=== PATIENT | male | born 1970 | race Caucasian/White ===

== ENCOUNTER 2025-04-01 13:28 | Emergency (ER) | payer OTHER, SELFPAY ==
--- NOTE | 2025-04-01 13:32 | ED_ITS ---
HPI - General Adult General Stated complaint: SOB/Swollen Legs Source: patient and RN notes reviewed Mode of arrival: ambulatory Limitations: no limitations History of Present Illness HPI narrative: Patient is a 54-year-old male who presents to the [facility] with complaints of dyspnea on exertion and bilateral lower leg swelling. Patient states that his symptoms have been present the past 3 days. He states that the shortness of breath has worsened in severity. He does report some mild chest tightness that is nonradiating. He denies any cardiac history. Denies history of congestive heart failure. States that he does not have any significant medical history, and only takes Viagra. Related Data Home Medications ?Medication ?Instructions ?Recorded ?Confirmed ?Last Taken ?Type No Home Medications 04/01/25 04/01/25 Unknown History Allergies Allergy/AdvReac Type Severity Reaction Status Date / Time No Known Allergies Allergy Mild Verified 04/01/25 13:47 Review of Systems Review of Systems: CONSTITUTIONAL: Denies fever, chills, or sweats. EYES: Denies visual changes, redness, or discharge. ENT: Denies otalgia and sore throat CARDIOVASCULAR: Reports chest tightness. RESPIRATORY: Denies cough but reports dyspnea. GASTROINTESTINAL: Denies abdominal pain, nausea, vomiting, or diarrhea. GENITOURINARY: Denies dysuria or hematuria. SKIN: Denies rash or itching. MUSCULOSKELETAL: Denies back pain, joint pain, or myalgia. NEUROLOGIC: Denies headache, numbness, or weakness. Pertinent positives per HPI. PMFSH Comments At the time of my signature, I reviewed and agree with the nursing past medical, surgical, social, and family history. There is no relevant family history pertinent to the patient complaint. Exam Narrative: GENERAL: This is a well-nourished, well-developed patient, in no apparent distress. HEAD: normocephalic, atraumatic. EYES: Sclera clear/white. Vision is grossly intact. EARS: External ears normal. Hearing grossly intact. NOSE: External nose normal with no obvious nasal discharge, nares without redness, no rhinorrhea. THROAT: Mucous membranes moist, posterior pharynx clear. NECK: Neck supple, non-tender without lymphadenopathy, masses or thyromegaly. CARDIOVASCULAR: Regular rate and rhythm. Bilateral lower leg edema present. RESPIRATORY: Clear to auscultation. Breath sounds equal bilaterally. No wheezes, rales, or rhonchi. GASTROINTESTINAL: Abdomen soft, non-tender, nondistended. Bowel sounds are active. No hepato-splenomegaly, or palpable masses. No guarding. SKIN: warm, intact with no suspicious lesions or rash, good texture and turgor. NEURO: awake, alert, and oriented to person, place and time. There were no obvious focal neurologic abnormalities. Course Course Level of Care: Express Care Visit Vital Signs Vital signs: Vital Signs Temperature 97.0 F L 04/01/25 13:35 Pulse Rate 105 H 04/01/25 13:35 Respiratory Rate 20 04/01/25 13:35 Blood Pressure 122/34 L 04/01/25 13:35 Pulse Oximetry 98 04/01/25 13:35 Oxygen Delivery Room Air 04/01/25 13:35 Temperature 97.0 F L 04/01/25 13:35 Pulse Rate 105 H 04/01/25 13:35 Respiratory Rate 04/01/25 13:35 Blood Pressure 122/34 L 04/01/25 13:35 Pulse Oximetry 98 04/01/25 13:35 Oxygen Delivery Room Air 04/01/25 13:35 Reviewed Transfer Transfered to: [facility] Transportation: Other (private vehicle (AMA against ambulance as advised by STAFFING ASSOCIATE)) Transfer rationale: shortness of breath, chest tightness, bilateral lower extremity edema; appropriate evaluation, testing, and treatment Accepting physician: Dr. Yi Medical Decision Making MDM Narrative Medical decision making narrative: Patient presents to the [facility] with dyspnea on exertion, chest tightness, bilateral lower extremity edema. Patient was directed to [facility] for further evaluation, testing, and treatment. Accepting physician is Dr. Yi. Patient transferred via private vehicle with dad as regional tanker truck driver (AMA against EMS transport). Differential Diagnosis Differential Diagnosis: congestive heart failure, dependent edema, ACS Vital Signs Vital Signs: Vital Signs Temperature 97.0 F L 04/01/25 13:35 Pulse Rate 105 H 04/01/25 13:35 Respiratory Rate 04/01/25 13:35 Blood Pressure 122/34 L 04/01/25 13:35 Pulse Oximetry 98 04/01/25 13:35 Oxygen Delivery Room Air 04/01/25 13:35 Temperature 97.0 F L 04/01/25 13:35 Pulse Rate 105 H 04/01/25 13:35 Respiratory Rate 20 04/01/25 13:35 Blood Pressure 122/34 L 04/01/25 13:35 Pulse Oximetry 98 04/01/25 13:35 Oxygen Delivery Room Air 04/01/25 13:35 ECG Data EKG #1: Attestation: I personally reviewed and interpreted this ECG as follows: ECG completion date: 04/01/25 ECG completion time: 13:51 Interpretation: normal axis, normal intervals, sinus tachycardia with a rate of 105 bpm EKG Interpretation: tachycardia Critical Care Time Critical Care Time Critical Care Time: No Discharge Plan Discharge Clinical Impression: Dyspnea on exertion, Bilateral edema of lower extremity Patient Disposition: Acute Care Hospital Condition: Stable Additional Instructions: Go directly to [facility] emergency department. Patient Language: French Prescriptions: No Action No Home Medications Follow-up/Referrals: UNKNOWN,DOCTOR [Non-Staff] - Time of Disposition: 13:45
[2025-04-01 13:35] VITALS: BP 122/34; PULSE 105; RESP 20; TEMP 36.1; O2SAT 98
--- NOTE | 2025-04-01 13:40 | ECG_ITS ---
Test Date: 2025-04-01 13:51:12 Measurements Intervals [place] Rate: 105 P: 69 SC: 144 QRS: 73 QRSD: 93 T: 60 QT: 326 QTc: 431 Interpretive Statements SINUS TACHYCARDIA BORDERLINE R WAVE PROGRESSION, ANTERIOR LEADS BORDERLINE ST-T WAVE ABNORMALITY- INF/HIGH LAT LEADS BORDERLINE ECG No previous ECG available for comparison Electronically Signed On 04-01-2025 14:12:03 CDT by Davonte Cheatham D.O.
== END 2025-04-01 13:55 | disposition short-term general hospital (02) ==
PROVIDERS: Emergency Provider Nurse Practitioner
DX: R06.09 Other forms of dyspnea (principal); R60.0 Localized edema
CPT/HCPCS: 93005; 99213; G0463

== ENCOUNTER 2025-04-01 14:28 | Observation (INO) | payer OTHER, SELFPAY ==
--- NOTE | ~2025-04-01 | XR_ITS ---
CHEST RADIOGRAPH, PA AND LATERAL CLINICAL HISTORY: orthopnea, dyspnea . COMPARISON: None available TECHNIQUE: PA and lateral views of the chest. FINDINGS The cardiomediastinal silhouette is enlarged. Dense opacification of the right heart border for which a right middle lobe infiltrate is suspected. The remainder of the lungs are clear. IMPRESSION: Right middle lobe infiltrate. Reviewed, dictated and finalized at location A.
--- NOTE | ~2025-04-01 | US_ITS ---
EXAMINATION: US right upper quadrant DATE: 04/02/2025 09:37 INDICATION: Transaminitis TECHNIQUE: Multiple grayscale and Doppler ultrasound images of the abdomen were obtained. COMPARISON: None FINDINGS: Visualized portion of the pancreatic body appears normal. Portions of the head and tail are obscured by shadowing bowel gas. Liver has normal echogenicity and contour, with a smooth surface. 1.6 cm hype rechoic nodule in the right hepatic lobe most likely representing a hemangioma. There is also a 1.3 c m anechoic cyst in the left hepatic lobe.. No intrahepatic biliary duct dilation suspected. Portal ve nous flow was seen in the hepatopetal, normal direction and has normal Doppler waveform. The gallblad mino is normal in appearance. There is no cholelithiasis. The common bile duct measures 4 mm, which i s normal. Sonographic Deal sign was reported as negative by the superintendent recreation. Visualized portion of the proximal inferior vena cava is normal. IMPRESSION: 1. Indeterminate 1.6 cm hyperechoic nodules in the right hepatic lobe which in the absence of known l iver disease or prior primary malignancy would be most likely to represent a hemangioma. Could consid er multiphase pre and postcontrast MRI or CT for more definitive determination as clinically indicate d. Reviewed, dictated and finalized at location A. IMPRESSION: 1. Indeterminate 1.6 cm hyperechoic nodules in the right hepatic lobe which in the absence of known liver disease or prior primary malignancy would be most li migue to represent a hemangioma. Could consider multiphase pre and postcontrast MRI or CT for more definitive determination as clinically indicated.
[2025-04-01 15:15] VITALS: BP 125/92; PULSE 108; RESP 22; TEMP 36.5; O2SAT 98
--- NOTE | 2025-04-01 17:15 | ECG_ITS ---
Test Date: 2025-04-01 19:26:54 Measurements Intervals [place] Rate: 103 P: 64 [place]: 141 QRS: 48 QRSD: 97 T: 34 QT: 347 QTc: 454 Interpretive Statements SINUS TACHYCARDIA BORDERLINE ST-T WAVE ABNORMALITY- DIFFUSE LEADS BASELINE WANDER- V4, V6 BORDERLINE ECG Compared to ECG 04/01/2025 13:51:12 NO SIGNIFICANT CHANGE Electronically Signed On 04-01-2025 20:18:20 CDT by Davonte Cheatham D.O.
--- NOTE | 2025-04-01 17:17 | ED_ITS ---
HPI - SOB/Dyspnea General Chief Complaint: Shortness of Breath/Dyspnea <Tatiana Castillo PA-C - Last Filed: 04/02/25 09:17> Stated Complaint: sob <Tatiana Castillo PA-C - Last Filed: 04/02/25 09:17> Time Seen by Provider: 04/01/25 19:14 <Tatiana Castillo PA-C - Last Filed: 04/02/25 09:17> Focused HPI: 54-year-old male with no past medical history presents to the emergency department with concerns for CHF. Patient states for the past 3 days he has had exertional dyspnea, orthopnea, generalized fatigue and new onset bilateral lower extremity edema. He went to urgent care was advised to come to the ED for further evaluation. He denies chest pain. No prior cardiac history or procedures. Is also endorsing a productive cough. Denies fevers. GENERAL: Well-appearing, well-nourished, and in no acute distress. HEAD: Normocephalic, atraumatic. CHEST: Clear to auscultation. ?No respiratory distress. EXT: 3+ bilateral lower extremity edema no overlying warmth or erythema HEART: Regular rate and rhythm.? NEURO: ?Alert and oriented x3. Patient screened in triage and initial orders placed.? ?Additional care and disposition to be based upon?diagnostic testing and treatment. <Tatiana Castillo PA-C - Last Filed: 04/02/25 09:17> History of Present Illness HPI Narrative: 54-year-old male presents emergency department for evaluation for worsening shortness of breath. Patient states he began developing shortness of breath over the last 3 days and leg edema today. Patient does have a 40 pack year smoking history but denies any prior diagnosis of COPD, CHF and has no prior history of coronary disease. Patient states he does not follow-up with physicians. Patient denies any associated chest pain but does have exertional shortness of breath. Patient reports he has had increased cough and sputum production over the last few days as well. Patient reports he has been sleeping upright due to the shortness of breath. Patient is also complaining of some increased abdominal fullness. <Cesar Rios MD - Last Filed: 04/01/25 23:01> Related Data Home Medications: Home Medications ?Medication ?Instructions ?Recorded ?Confirmed ?Last Taken ?Type nicotine (polacrilex) 4 mg gum mg 04/01/25 Unknown History nicotine 14 mg/24 hr daily 04/01/25 Unknown History transdermal patch <Tatiana Castillo PA-C - Last Filed: 04/02/25 09:17> Allergies/Adverse Reactions: Allergies Allergy/AdvReac Type Severity Reaction Status Date / Time No Known Allergies Allergy Mild Verified 04/01/25 13:47 <Tatiana Castillo PA-C - Last Filed: 04/02/25 09:17> Review of Systems 2 Review of Systems: All systems reviewed & are unremarkable except as noted in HPI and below <Cesar Rios MD - Last Filed: 04/01/25 23:01> [facility] Past Medical History Medical History: Medical History (Updated 04/02/25 @ 04:06 by Cris Robbins DO) Anxiety and depression Nicotine dependence with current use <Tatiana Castillo PA-C - Last Filed: 04/02/25 09:17> Surgical History Surgical History: Surgical History (Updated 04/02/25 @ 04:02 by Cris Robbins DO) History of appendectomy <Tatiana Castillo PA-C - Last Filed: 04/02/25 09:17> Social History Social History: Social History (Updated 04/02/25 @ 08:12 by Cris Robbins DO) Social History: He has been since 2019. He lives with his father and uncle. 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 He does not have any children. 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 He still smokes 1 pack of cigarettes per day and started when he was a teenager. He occasionally uses marijuana. Code status: Full code Surrogate decision maker: Tee Cobb (father) Smoking packs per day: 1 Smoking cigarettes per day: 20.0 Years smoked: 40 Smoking pack-years: 40.00 Smoking status: Current every day smoker Tobacco type: cigarettes Alcohol intake: former Alcohol use details: Patient reports he used to drink date alcoholic beverages a day but quit drinking alcohol in 1999. Do You Feel Safe in your Home?: Yes Lack of Transportation: No Lack of Food: Never True Current Housing: I Have Housing Concerned About Future Housing: No Difficulty Paying Gas/Electric Bills: No Difficulty Paying for Meds: No Currently Unemployed: No Education: Don't Know Difficulty w/ Childcare or Family Care: No Spiritual care concerns: No <Tatiana Castillo PA-C - Last Filed: 04/02/25 09:17> Exam 2 Narrative: APPEARANCE: Ill-appearing HEAD: normocephalic, atraumatic. EYES: PERRLA/EOMI, conjunctivae clear. NOSE: Normal no drainage NECK: Supple. No adenopathy, no masses. RESPIRATORY: Increased work breathing, lungs clear to auscultation CARDIOVASCULAR: Regular rate and rhythm without murmurs rubs or gallops. ABDOMINAL: Soft, nontender, nondistended, normal bowel sounds MUSCULOSKELETAL: +1 to 2 Lower extremity edema NEURO: Alert. Cranial nerves II through XII intact. Good gait. Good coordination SKIN: Warm, dry. Normal Color <Cesar Rios MD - Last Filed: 04/01/25 23:01> Course Vital Signs Vital signs: Vital Signs Temperature 97.7 F 04/01/25 15:15 Pulse Rate 108 H 04/01/25 15:15 Respiratory Rate 22 H 04/01/25 15:15 Blood Pressure 125/92 H 04/01/25 15:15 Pulse Oximetry 98 04/01/25 15:15 Oxygen Delivery Room Air 04/01/25 15:15 Temperature 97.1 F L 04/02/25 05:37 Pulse Rate 106 H 04/02/25 08:00 Respiratory Rate 19 04/02/25 05:37 Blood Pressure 124/90 04/02/25 05:37 Pulse Oximetry 94 04/02/25 05:37 Oxygen Delivery Room Air 04/02/25 08:00 <Tatiana Castillo PA-C - Last Filed: 04/02/25 09:17> Vital Signs Temperature 97.7 F 04/01/25 15:15 Pulse Rate 108 H 04/01/25 15:15 Respiratory Rate 22 H 04/01/25 15:15 Blood Pressure 125/92 H 04/01/25 15:15 Pulse Oximetry 98 04/01/25 15:15 Oxygen Delivery Room Air 04/01/25 15:15 Temperature 97.1 F L 04/02/25 05:37 Pulse Rate 106 H 04/02/25 08:00 Respiratory Rate 19 04/02/25 05:37 Blood Pressure 124/90 04/02/25 05:37 Pulse Oximetry 94 04/02/25 05:37 Oxygen Delivery Room Air 04/02/25 08:00 <Cesar Rios MD - Last Filed: 04/01/25 23:01> MDM - SOB/Dyspnea MDM Narrative Medical decision making narrative: 54-year-old male 40 pack year smoking history presents emergency department for evaluation for lower extremity edema and increased shortness of breath. Patient is currently afebrile but does have a leukocytosis of 10.5 and hemoglobin 14.2. INR is 1.3. No significant acute abnormalities on his CMP. Patient does have mild elevation of AST ALT but normal T bili and alk-phos. Patient does have an elevated proBNP of 8030 an elevated troponin 0.065. EKG shows sinus tachycardia with a rate of [address] changes and no evidence acute myocardial infarction. Patient does have exertional shortness of breath but denies any chest pain. X-ray does show evidence of a right middle lobe infiltrate, patient does have increased sputum production. Blood cultures were ordered and patient was started on antibiotics for possible community- acquired pneumonia, patient was treated with IV Solu-Medrol for possible COPD exacerbation. Patient was treated with a breathing treatment as well but patient did not have significant wheezing on exam at initial evaluation. Patient was treated with a dose of IV Lasix due to the concern for acute CHF diagnosis. <Cesar Rios MD - Last Filed: 04/01/25 23:01> Differential Diagnosis Differential diagnosis: Likely acute exacerbation of chronic obstructive airways disease, congestive heart failure, community acquired pneumonia and asthma with exacerbation <Cesar Rios MD - Last Filed: 04/01/25 23:01> Lab Data Attestation: I reviewed the patient's lab results. <Cesar Rios MD - Last Filed: 04/01/25 23:01> Result diagrams: 04/02/25 06:29 04/02/25 06:29 <Tatiana Castillo PA-C - Last Filed: 04/02/25 09:17> Labs: Lab Results 04/01/25 04/01/25 Range/Units 17:37 20:26 WBC 10.5 H (4.5-10.0) K/mm3 RBC 4.71 (4.6-6.20) M/mm3 Hgb 14.2 (14.0-18.0) g/dL Hct 43.8 (42.0-52.0) % MCV 93.0 (80-100) fl MCH 30.1 (26-34) pg MCHC 32.4 (32-36) g/dl RDW 14.0 (11.5-14.5) % Plt Count 221 (150-375) k/mm3 MPV 12.3 H (7.4-10.4) fl Immature Gran % (Auto) 0.5 (0-0.5) % Neut % (Auto) 64.6 (45.5-73.1) % Lymph % (Auto) 24.0 (18.3-44.2) % [place] % (Auto) 9.0 H (2.6-8.5) % Eos % (Auto) 1.1 (0-4.4) % Baso % (Auto) 0.8 (0.2-1.2) % Lymph # (Auto) 2.53 (0.9-3.2) K/mm3 [place] # (Auto) 1.0 H (0.1-0.6) K/mm3 Eos # (Auto) 0.1 (0-0.3) K/mm3 Baso # (Auto) 0.1 (0.0-0.1) K/mm3 Abs Immat Gran (auto) 0.05 H (0.00-0.031) K/mm3 Absolute Neuts (auto) 6.8 H (1.3-6.7) K/mm3 Absolute Nucleated RBC 0.000 (0.0-0.012) K/mm3 Nucleated RBC % 0.0 (0.0-0.2) % PT 15.7 H (11.1-14.7) Seconds INR 1.3 APTT 28.4 (22.3-36.8) Seconds Sodium 136 L (137-145) mmol/L Potassium 4.6 (3.4-5.0) mmol/L Chloride 105 (98-107) mmol/L Carbon Dioxide 22 (22-30) mmol/L Anion Gap 9 (4-12) mmol/L BUN 24 H (9-20) mg/dL Creatinine 1.24 (0.7-1.3) mg/dL Estim Creat Clear Calc 56 ml/min Estimated GFR 60 (59 - ) Glucose 129 H (65-110) mg/dL Calcium 9.1 (8.4-10.2) mg/dL Magnesium 2.1 (1.6-2.3) mg/dL Total Bilirubin 1.2 (0.2-1.3) mg/dL AST 63 H (17-59) U/L ALT 74 H (6-50) U/L Alkaline Phosphatase 56 (38-126) U/L Troponin I 0.065 H* 0.071 H* (0.000-0.034) ng/mL NT-Pro-B Natriuret Pep 8030 H (19.9-100) pg/mL Total Protein 6.4 (6.3-8.2) g/dL Albumin 3.6 (3.5-5.1) g/dL <Tatiana Castillo PA-C - Last Filed: 04/02/25 09:17> Lab Results 04/01/25 04/01/25 Range/Units 17:37 20:26 WBC 10.5 H (4.5-10.0) K/mm3 RBC 4.71 (4.6-6.20) M/mm3 Hgb 14.2 (14.0-18.0) g/dL Hct 43.8 (42.0-52.0) % MCV 93.0 (80-100) fl MCH 30.1 (26-34) pg MCHC 32.4 (32-36) g/dl RDW 14.0 (11.5-14.5) % Plt Count 221 (150-375) k/mm3 MPV 12.3 H (7.4-10.4) fl Immature Gran % (Auto) 0.5 (0-0.5) % Neut % (Auto) 64.6 (45.5-73.1) % Lymph % (Auto) 24.0 (18.3-44.2) % [place] % (Auto) 9.0 H (2.6-8.5) % Eos % (Auto) 1.1 (0-4.4) % Baso % (Auto) 0.8 (0.2-1.2) % Lymph # (Auto) 2.53 (0.9-3.2) K/mm3 [place] # (Auto) 1.0 H (0.1-0.6) K/mm3 Eos # (Auto) 0.1 (0-0.3) K/mm3 Baso # (Auto) 0.1 (0.0-0.1) K/mm3 Abs Immat Gran (auto) 0.05 H (0.00-0.031) K/mm3 Absolute Neuts (auto) 6.8 H (1.3-6.7) K/mm3 Absolute Nucleated RBC 0.000 (0.0-0.012) K/mm3 Nucleated RBC % 0.0 (0.0-0.2) % PT 15.7 H (11.1-14.7) Seconds INR 1.3 APTT 28.4 (22.3-36.8) Seconds Sodium 136 L (137-145) mmol/L Potassium 4.6 (3.4-5.0) mmol/L Chloride 105 (98-107) mmol/L Carbon Dioxide 22 (22-30) mmol/L Anion Gap 9 (4-12) mmol/L BUN 24 H (9-20) mg/dL Creatinine 1.24 (0.7-1.3) mg/dL Estim Creat Clear Calc 56 ml/min Estimated GFR 60 (59 - ) Glucose 129 H (65-110) mg/dL Calcium 9.1 (8.4-10.2) mg/dL Magnesium 2.1 (1.6-2.3) mg/dL Total Bilirubin 1.2 (0.2-1.3) mg/dL AST 63 H (17-59) U/L ALT 74 H (6-50) U/L Alkaline Phosphatase 56 (38-126) U/L Troponin I 0.065 H* 0.071 H* (0.000-0.034) ng/mL NT-Pro-B Natriuret Pep 8030 H (19.9-100) pg/mL Total Protein 6.4 (6.3-8.2) g/dL Albumin 3.6 (3.5-5.1) g/dL <Cesar Rios MD - Last Filed: 04/01/25 23:01> ECG Data EKG #1: EKG Interpretation: sinus rhythm, no ectopy, non-specific ST changes, normal QRS, normal QT and NL axis <Cesar Rios MD - Last Filed: 04/01/25 23:01> Discharge Plan Discharge Clinical Impression: Dyspnea on exertion, Bilateral edema of lower extremity, Congestive heart failure, Elevated troponin Community acquired pneumonia Qualifiers: Laterality: right Lung location: middle lobe of lung Qualified Code(s): J18.9 - Pneumonia, unspecified organism <Tatiana Castillo PA-C - Last Filed: 04/02/25 09:17> Patient Disposition: Still a Patient <Tatiana Castillo PA-C - Last Filed: 04/02/25 09:17> Condition: Serious <Tatiana Castillo PA-C - Last Filed: 04/02/25 09:17>
[2025-04-01 17:49] VITALS: BP 126/95; PULSE 100; RESP 20; TEMP 36.3; O2SAT 98
[2025-04-01 18:04] LABS: Basophils Absolute Auto 0.1 K/mm3 (0.0-0.1); Basophils Percent Auto 0.8 % (0.2-1.2); Eosinophils Absolute Auto 0.1 K/mm3 (0-0.3); Eosinophils Percent Auto 1.1 % (0-4.4); Hematocrit 43.8 % (42.0-52.0); Hemoglobin 14.2 g/dL (14.0-18.0); Immature Granulocyte Absolute 0.05 K/mm3 (0.00-0.031); Immature Granulocyte Percent A 0.5 % (0-0.5); Lymphocytes Absolute Auto 2.53 K/mm3 (0.9-3.2); Mean Corpuscular HGB Conc 32.4 g/dl (32-36); Mean Corpuscular Hemoglobin 30.1 pg (26-34); Mean Platelet Volume 12.3 fl (7.4-10.4); Neutrophils Absolute Auto 6.8 K/mm3 (1.3-6.7); Neutrophils Percent Auto 64.6 % (45.5-73.1); Platelet Count Result 221 k/mm3 (150-375); Red Blood Count 4.71 M/mm3 (4.6-6.20); White Blood Count 10.5 K/mm3 (4.5-10.0)
[2025-04-01 18:16] LABS: INR 1.3; Partial Thromboplastin Time 28.4 Seconds (22.3-36.8); Prothrombin Time 15.7 Seconds (11.1-14.7)
[2025-04-01 18:18] LABS: Alanine Aminotransferase 74 U/L (6-50); Albumin Level 3.6 g/dL (3.5-5.1); Alkaline Phosphatase 56 U/L (38-126); Anion Gap 9 mmol/L (4-12); Aspartate Amino Transferase 63 U/L (17-59); Bilirubin,Total 1.2 mg/dL (0.2-1.3); Blood Urea Nitrogen 24 mg/dL (9-20); Calcium 9.1 mg/dL (8.4-10.2); Carbon Dioxide 22 mmol/L (22-30); Chloride 105 mmol/L (98-107); Estimated CRCL calculation 56 ml/min; Estimated Glomerular Filt Rate 60; Glucose 129 mg/dL (65-110); Magnesium 2.1 mg/dL (1.6-2.3); Potassium 4.6 mmol/L (3.4-5.0); Sodium 136 mmol/L (137-145); Total Protein 6.4 g/dL (6.3-8.2)
[2025-04-01 18:26] LABS: NT Pro B Type Natriuretic Pept 8030 pg/mL (19.9-100)
[2025-04-01 18:30] LABS: Troponin I 0.065 ng/mL (0.000-0.034)
--- NOTE | 2025-04-01 18:40 | PC.NURSE ---
Pt. alerted this RN that he is stepping outside, but is not leaving.
--- NOTE | 2025-04-01 19:18 | ECG_ITS ---
Test Date: 2025-04-01 20:46:26 Measurements Intervals [place] Rate: 96 P: 64 [place]: 144 QRS: 35 QRSD: 100 T: 34 QT: 338 QTc: 427 Interpretive Statements SINUS RHYTHM BORDERLINE ST-T WAVE ABNORMALITY- DIFFUSE LEADS BASELINE WANDER- AVF BORDERLINE ECG Compared to ECG 04/01/2025 19:26:54 HEART RATE HAS DECREASED Electronically Signed On 04-02-2025 06:09:57 CDT by Davonte Cheatham D.O.
[2025-04-01 19:40] VITALS: PULSE 101; RESP 20
[2025-04-01] MEDS: ALBUTEROL SULFATE NEB 2.5 MG/3 ML INH INHALATION (19:40)
[2025-04-01] MEDS: FUROSEMIDE INJ 40 MG/4 ML VIAL IV PUSH (19:57)
[2025-04-01] MEDS: methylPREDNISolone SOD SUCC 125 MG VIAL IV PUSH (19:58)
[2025-04-01] MEDS: ASPIRIN 81 MG CHEWABLE TABLET 324 MG PO (20:15)
[2025-04-01 20:22] VITALS: O2SAT 96
[2025-04-01 21:02] LABS: Troponin I 0.071 ng/mL (0.000-0.034)
[2025-04-01 21:05] LABS: Add Urine Microscopic? YES; Appearance Urine Clear (Clear); Bacteria Urine None Seen /hpf; Bilirubin Urine Negative (Negative); Blood Urine Negative (Negative); Color Urine Yellow (Yellow); Glucose Urine UA Negative (Negative); Ketones Urine Negative (Negative); Leukocyte Esterase Ur Trace LEU/UL (Negative); Nitrate Urine Negative (Negative); Non Pathogenic Casts 0-2; Protein Urine Negative (Negative); RBC Urine 0-2 /hpf (0-2); Specific Grav Ur 1.009 (1.001-1.035); Squamous Epithelial Cell Urine None Seen /hpf (Few); Urobilinogen Urine 0.2 mg/dL (<2.0); WBC Urine 0-5 /hpf (0-3); pH Urine 5.5 (5.0-9.0)
[2025-04-01 21:39] VITALS: BP 141/89; PULSE 98; RESP 20; O2SAT 97
[2025-04-01 21:47] VITALS: BMI 27.6
[2025-04-01 22:00] VITALS: BP 129/82; PULSE 105; RESP 18; TEMP 36.3; O2SAT 97
[2025-04-01] MEDS: AZITHROMYCIN 500 MG/NS 250 ML 500 MG/250 ML BAG 250 MG IVPB (22:24)
--- NOTE | 2025-04-01 23:14 | ADMGEN ---
This patient, Nicanor Cobb, was admitted to [facility] Surg Room 311-01. Patient/family oriented to hospital policies and general routines including ID bracelet, bed and alarms, visiting hours, pain management, procedures, bathroom and other care routines, personal items, smoking policy, room service/diet, and visiting hours. Information on how to activate the Rapid Response Team has been discussed. Patient/Family are encouraged to report perceived risks to care and to ask questions if they do not understand what they are told or what they should do.
[2025-04-02] VITALS (13 sets, daily range): BP systolic 123–127; BP diastolic 61–95; PULSE 100–115; RESP 18–20; TEMP 36.2–36.5; O2SAT 94–97
--- NOTE | 2025-04-02 | ECHO_ITS ---
Patient Info Name: Nicanor Cobb Age: 54 years : 1970 Gender: Male Ht: 67 in Wt: 189 lbs BSA: 2.04 m2 HR: 104 bpm BP: 124 / 90 mmHg Heart Rhythm: Sinus Rhythm, Tachycardia Technical Quality: Good Exam Date: 04/02/2025 7:30 AM Patient Status: I Admit Date: 04/01/2025 Exam Type: CA echo dop color flow w con Complete two-dimensional, color flow and Doppler transthoracic echocardiogram is performed with contrast to opacify the left ventricle and to improve the deliniation of the left ventricle endocardial borders. Staff Referring Physician: Cris Robbins DO Speech And Language Tutor: Lilly Llanos Attending Provider: Cris Robbins DO Contrast/Agitated Saline Contrast/Ag. Saline: Definity Amount: 2.00 ml Administered By: Lilly Llanos Existing IV Access: Yes IV Access Condition: patent with no signs of infiltration Summary 1. Left ventricular chamber dimension is moderately enlarged. 2. Left ventricular systolic function is severely reduced, estimated at 25-30. 3. There is mildly increased left ventricular wall thickness. 4. Right ventricular chamber dimension is normal. 5. Right ventricular systolic function is reduced. 6. There is mild aortic valve regurgitation. 7. There is moderate mitral valve regurgitation. 8. There is mild tricuspid valve regurgitation. 9. Estimated pulmonary arterial systolic pressure is 50 mmHg. Left Ventricle Left ventricular chamber dimension is moderately enlarged. Left ventricular systolic function is severely reduced, estimated at 25-30. There is mildly increased left ventricular wall thickness. The left ventricular diastolic function is abnormal. Right Ventricle Right ventricular chamber dimension is normal. Right ventricular systolic function is reduced. Left Atria Left atrial chamber dimension is normal. Right Atria Right atrial chamber dimension is normal. Atrial Septum Intact interatrial septum visualized by color flow imaging. Aortic Valve The aortic valve is trileaflet. There is no aortic valve stenosis. There is mild aortic valve regurgitation. Pulmonic Valve The pulmonic valve is not well visualized. There is no pulmonic regurgitation. Mitral Valve There is moderate mitral valve regurgitation. Tricuspid Valve There is mild tricuspid valve regurgitation. Estimated pulmonary arterial systolic pressure is 50 mmHg. Pericardium/Pleural There is no pericardial effusion. Inferior Vena Cava Dilated inferior vena cava with <50% collapse upon inspiration consistent with elevated right atrial pressure, 15 mmHg. Aorta The aortic root size at the sinus of Valsalva is normal. Left Ventricular Outflow Tract Name Value Normal LVOT 2D LVOT Diameter 2.1 cm LVOT Doppler LVOT Peak Velocity 66 cm/s LVOT Peak Gradient 2 mmHg LVOT Mean Gradient 1 mmHg LVOT VTI 9 cm LVOT VTI/AV VTI Ratio 0.7 LVOT Stroke Volume 31 ml LVOT CO 3.3 l/min LVOT CI 1.6 l/min/m2 Pulmonic Valve Name Value Normal PV Doppler PV Peak Velocity 89 cm/s PV Peak Gradient 3 mmHg Mitral Valve Name Value Normal MV 2D/MM MV Area (Planimetry) 4.3 cm2 MV Doppler MV Peak Gradient 6 mmHg MV Mean Gradient 3 mmHg MV Area (Cont Eq VTI) 1.8 cm2 MV Regurgitation Doppler MR Peak Gradient 93 mmHg Tricuspid Valve Name Value Normal TV Regurgitation Doppler TR Peak Velocity 294 cm/s TR Peak Gradient 35 mmHg Estimated PAP/RSVP RA Pressure 15 mmHg <=5 PA Systolic Pressure 50 mmHg <36 RV Systolic Pressure 50 mmHg <36 TV Annular TDI TV Lateral Indy s' Velocity 8.6 cm/s >=9.5 Aortic Valve Name Value Normal AV 2D/MM AV Area (Planimetry) 3.7 cm2 AV Doppler AV Peak Velocity 90 cm/s AV Peak Gradient 3 mmHg AV Mean Gradient 2 mmHg AV VTI 13 cm AV Area (Cont Eq VTI) 2.3 cm2 >=3.0 AV Area (Cont Eq Ken) 2.6 cm2 AV DI (Ken) 0.73 AV Regurgitation 2D LVOT Area 3.5 cm2 Ventricles Name Value Normal LV Dimensions 2D/MM IVS Diastolic Thickness (2D) 1.1 cm 0.6-1.0 LVID Diastole (2D) 6.0 cm 4.2-5.8 LVIW Diastolic Thickness (2D) 1.1 cm 0.6-1.0 LVID Systole (2D) 5.0 cm 2.5-4.0 LVOT Diameter 2.1 cm LV Mass (2D Cubed) 279.08 g 88.00-224.00 LV Mass Index (2D Cubed) 137 g/m2 49-115 Relative Wall Thickness (2D) 0.37 <=0.42 LV Fractional Shortening/Ejection Fraction 2D/MM LV Fractional Shortening (2D) 16 % 25-43 LV EF (2D Teichholz) 33 % LV Diastolic Volume (4C MOD) 256 ml LV EF (4C MOD) 21 % LV Diastolic Volume (2C MOD) 257 ml LV EF (2C MOD) 20 % LV Diastolic Volume (BP MOD) 259 ml 62-150 LV Diastolic Volume Index (BP MOD) 127 ml/m2 34-74 LV Systolic Volume (BP MOD) 207 ml 21-61 LV Systolic Volume Index (BP MOD) 102 ml/m2 11-31 LV EF (BP MOD) 20 % 52-72 LV Diastolic Length (4C) 9.2 cm LV Systolic Length (4C) 8.8 cm LV Stroke Volume (4C MOD) 54 ml Atria Name Value Normal LA Dimensions LA Volume (4C A-L) 54 ml LA Volume (BP A-L) 51 ml RA Dimensions RA Systolic Major [place] Length (4C) 5.0 cm 2.1-2.7 RA Area (4C) 16.0 cm2 <=18.0 Report Signatures
[2025-04-02 00:08] LABS: Troponin I 0.075 ng/mL (0.000-0.034)
[2025-04-02] MEDS: ALBUTEROL SULFATE NEB 2.5 MG/3 ML INH INHALATION ×2 (02:39→20:04)
[2025-04-02 02:58] LABS: Troponin I 0.059 ng/mL (0.000-0.034)
--- NOTE | 2025-04-02 03:56 | P.HP_ITS ---
H&P: HPI History of Present Illness Date/Time: 04/02/25 03:56 Chief Complaint: Shortness of breath for a few days Narrative: 54-year-old male with a past medical history of heavy tobacco use has not seen a physician in many years who presented to the ER with shortness of breath for 3-4 days. Review of Systems 2 Review of Systems: 12 systems were reviewed with pertinent positives and negatives per HPI. Except as documented in the HPI, all other systems were reviewed and are negative. [facility] Past Medical History Medical History (Updated 04/02/25 @ 04:06 by Cris Robbins DO) Anxiety and depression Nicotine dependence with current use Surgical History Surgical History (Updated 04/02/25 @ 04:02 by Cris Robbins DO) History of appendectomy Social History Social History (Updated 04/02/25 @ 04:00 by Cris Robbins DO) Social History: Code status: Full code Surrogate decision maker: Tee Cobb (father) Smoking packs per day: 1 Smoking cigarettes per day: 20.0 Years smoked: 40 Smoking pack-years: 40.00 Smoking status: Current every day smoker Tobacco type: cigarettes Alcohol intake: current Do You Feel Safe in your Home?: Yes Lack of Transportation: No Lack of Food: Never True Current Housing: I Have Housing Concerned About Future Housing: No Difficulty Paying Gas/Electric Bills: No Difficulty Paying for Meds: No Currently Unemployed: No Education: Don't Know Difficulty w/ Childcare or Family Care: No Spiritual care concerns: No Meds Home Medications and Allergies Home Medications ?Medication ?Instructions ?Recorded ?Confirmed ?Type nicotine (polacrilex) 4 mg gum mg 04/01/25 History nicotine 14 mg/24 hr daily 04/01/25 History transdermal patch Allergies Allergy/AdvReac Type Severity Reaction Status Date / Time No Known Allergies Allergy Mild Verified 04/01/25 13:47 Vital Signs Vital Signs - 24 hr 04/01/25 15:15 04/01/25 17:49 04/01/25 19:40 Temperature 97.7 F 97.3 F L Pulse Rate 108 H 100 101 H Respiratory Rate 22 H 20 20 Blood Pressure 125/92 H 126/95 H Pulse Oximetry 98 98 Oxygen Delivery Room Air 04/01/25 20:22 04/01/25 21:39 04/01/25 22:00 Temperature 97.3 F L Pulse Rate 98 105 H Respiratory Rate 20 18 Blood Pressure 141/89 H 129/82 Pulse Oximetry 96 97 97 Oxygen Delivery Room Air 04/02/25 02:41 04/02/25 02:50 Temperature Pulse Rate 100 100 Respiratory Rate 20 20 Blood Pressure Pulse Oximetry Oxygen Delivery Exam 2 Narrative: Weight 79.9 kg BMI 27.6 H&P: Results Labs Labs: Laboratory Tests 04/01/25 17:37 04/01/25 17:37 04/01/25 04/01/25 04/01/25 17:37 20:26 20:51 WBC 10.5 H RBC 4.71 Hgb 14.2 Hct 43.8 MCV 93.0 MCH 30.1 MCHC 32.4 RDW 14.0 Plt Count 221 MPV 12.3 H Immature Gran % (Auto) 0.5 Neut % (Auto) 64.6 Lymph % (Auto) 24.0 [place] % (Auto) 9.0 H Eos % (Auto) 1.1 Baso % (Auto) 0.8 Lymph # (Auto) 2.53 [place] # (Auto) 1.0 H Eos # (Auto) 0.1 Baso # (Auto) 0.1 Abs Immat Gran (auto) 0.05 H Absolute Neuts (auto) 6.8 H Absolute Nucleated RBC 0.000 Nucleated RBC % 0.0 PT 15.7 H INR 1.3 APTT 28.4 Sodium 136 L Potassium 4.6 Chloride 105 Carbon Dioxide 22 Anion Gap 9 BUN 24 H Creatinine 1.24 Estim Creat Clear Calc 56 Estimated GFR 60 Glucose 129 H Calcium 9.1 Magnesium 2.1 Total Bilirubin 1.2 AST 63 H ALT 74 H Alkaline Phosphatase 56 Troponin I 0.065 H* 0.071 H* NT-Pro-B Natriuret Pep 8030 H Total Protein 6.4 Albumin 3.6 Urine Color Yellow Urine Appearance Clear Urine pH 5.5 Ur Specific [place] 1.009 Urine Protein Negative Urine Glucose (UA) Negative Urine Ketones Negative Ur Blood (Man) Negative Urine Nitrate Negative Urine Bilirubin Negative Urine Urobilinogen 0.2 Leukocyte Esterase Rfl Trace H Urine RBC 0-2 Urine WBC 0-5 Ur Squamous Epith Cells None seen Urine Bacteria None seen Urine Casts 0-2 04/01/25 04/02/25 23:24 02:20 WBC RBC Hgb Hct MCV MCH MCHC RDW Plt Count MPV Immature Gran % (Auto) Neut % (Auto) Lymph % (Auto) [place] % (Auto) Eos % (Auto) Baso % (Auto) Lymph # (Auto) [place] # (Auto) Eos # (Auto) Baso # (Auto) Abs Immat Gran (auto) Absolute Neuts (auto) Absolute Nucleated RBC Nucleated RBC % PT INR APTT Sodium Potassium Chloride Carbon Dioxide Anion Gap BUN Creatinine Estim Creat Clear Calc Estimated GFR Glucose Calcium Magnesium Total Bilirubin AST ALT Alkaline Phosphatase Troponin I 0.075 H* 0.059 H* D NT-Pro-B Natriuret Pep Total Protein Albumin Urine Color Urine Appearance Urine pH Ur Specific [place] Urine Protein Urine Glucose (UA) Urine Ketones Ur Blood (Man) Urine Nitrate Urine Bilirubin Urine Urobilinogen Leukocyte Esterase Rfl Urine RBC Urine WBC Ur Squamous Epith Cells Urine Bacteria Urine Casts Impressions Chest X-Ray 04/01/25 18:15 IMPRESSION: Right middle lobe infiltrate. EKG: Test Date: 2025-04-01 19:26:54 Measurements Intervals [place] Rate: 103 P: 64 LA: 141 QRS: 48 QRSD: 97 T: 34 QT: 347 QTc: 454 Interpretive Statements SINUS TACHYCARDIA BORDERLINE ST-T WAVE ABNORMALITY- DIFFUSE LEADS BASELINE WANDER- V4, V6 BORDERLINE ECG Compared to ECG 04/01/2025 13:51:12 NO SIGNIFICANT CHANGE All imaging and EKGs personally reviewed and interpreted. And unless stated otherwise agree with radiologic and cardiology interpretation. With multiple EKGs reviewed on this patient. Assessment and Plan Assessment and plan (1) Community acquired pneumonia: Qualifiers: Laterality: right Lung location: middle lobe of lung Qualified Code(s): J18.9 - Pneumonia, unspecified organism Code(s): J18.9 - Pneumonia, unspecified organism Status: Acute (2) Elevated troponin: Code(s): R79.89 - Other specified abnormal findings of blood chemistry Status: Acute (3) Bilateral edema of lower extremity: Code(s): R60.0 - Localized edema Status: Acute (4) Dyspnea on exertion: Code(s): R06.09 - Other forms of dyspnea Status: Acute Plan MEDICAL DECISION MAKING NARRATIVE -Spoke with the ED provider in detail regarding patient's evaluation, workup and management -Patient seen and examined at bedside -Collaborated with patient's nurse at the bedside in detail and addressed all concerns -Labs, electrolytes, radiology, investigations and test results reviewed -ED/Consult/Nursing/Ancilliary notes on the chart reviewed and appreciated -Spoke with patient at bedside and all questions were answered. Quality VTE Prophylaxis VTE prophylaxis: pharmacologic ordered (Lovenox 40 mg subQ daily.) Hospitalist MIPS Advance Care Plan I have confirmed that the patient's Advanced Care Plan is present, code status is documented, or surrogate decision maker is listed in patient medical record.: Yes Medication Reconciliation I have utilized all available resources to obtain, update and review the patients current medications (includes all prescriptions, OTC, herbals, cannabis, and nutritional supplements).: Yes
[2025-04-02 06:36] LABS: Hemoglobin 14.3 g/dL (14.0-18.0); Mean Corpuscular HGB Conc 33.3 g/dl (32-36); Mean Corpuscular Hemoglobin 30.4 pg (26-34); Mean Corpuscular Volume 91.5 fl (80-100); Mean Platelet Volume 11.9 fl (7.4-10.4); Platelet Count Result 220 k/mm3 (150-375); Red Cell Distribution Width 13.9 % (11.5-14.5); White Blood Count 8.9 K/mm3 (4.5-10.0)
[2025-04-02 07:13] LABS: Alanine Aminotransferase 78 U/L (6-50); Albumin Level 3.8 g/dL (3.5-5.1); Alkaline Phosphatase 60 U/L (38-126); Anion Gap 11 mmol/L (4-12); Aspartate Amino Transferase 65 U/L (17-59); Blood Urea Nitrogen 24 mg/dL (9-20); Calcium 8.6 mg/dL (8.4-10.2); Carbon Dioxide 21 mmol/L (22-30); Chloride 104 mmol/L (98-107); Estimated CRCL calculation 61 ml/min; Estimated Glomerular Filt Rate > 60; Glucose 169 mg/dL (65-110); Potassium 4.1 mmol/L (3.4-5.0); Sodium 136 mmol/L (137-145); Total Protein 6.7 g/dL (6.3-8.2)
[2025-04-02] MEDS: PERFLUTREN LIPID MICROSPHERES 1.5 ML VIAL DILUTED TO 10 ML TOTAL VOLUME IV PUSH (08:00)
--- NOTE | 2025-04-02 09:17 | IVDEFINITY ---
Prior to administration of IV Definity the patient was educated on the risks and benefits of the imaging enhancing agent including potential adverse side effects. The patient verbalized understanding. Allergies were verified. No exclusion criteria were identified and at least one of the following inclusion criteria were met: 1) physician request, 2) patient technically difficult to image (per the [place] [employer]ocardi[employer] guidelines of two or more segments not discernable within the apical view), or 3) questionable left ventricular function. ?
[2025-04-02] MEDS: ASPIRIN 81 MG CHEWABLE TABLET PO (09:31)
[2025-04-02] MEDS: ENOXAPARIN 40 MG/0.4 ML SYRINGE SUB-Q (09:32)
--- NOTE | 2025-04-02 11:38 | PM.IMPN ---
Progress Note: A&P Assessment and Plan (1) Community acquired pneumonia: Qualifiers: Laterality: right Lung location: middle lobe of lung Qualified Code(s): J18.9 - Pneumonia, unspecified organism Code(s): J18.9 - Pneumonia, unspecified organism Status: Acute (2) Elevated troponin: Code(s): R79.89 - Other specified abnormal findings of blood chemistry Status: Acute (3) Bilateral edema of lower extremity: Code(s): R60.0 - Localized edema Status: Acute (4) Dyspnea on exertion: Code(s): R06.09 - Other forms of dyspnea Status: Acute Plan Given the patient's report of wheezing for the last year he likely has some underlying COPD. Pt felt better after receiving steroids and nebulizer treatments in the ER. His lower extremity edema has resolved. He did not have any progressive symptoms of dyspnea on exertion all of his symptoms seem to be acute in nature. - echocardiogram to rule out CHF- Summary 1. Left ventricular chamber dimension is moderately enlarged. 2. Left ventricular systolic function is severely reduced, estimated at 25-30. 3. There is mildly increased left ventricular wall thickness. 4. Right ventricular chamber dimension is normal. 5. Right ventricular systolic function is reduced. 6. There is mild aortic valve regurgitation. 7. There is moderate mitral valve regurgitation. 8. There is mild tricuspid valve regurgitation. 9. Estimated pulmonary arterial systolic pressure is 50 mmHg. - will consult cardiology - continue oral steroids prednisone 60 mg p.o. for 5 days. - continue antibiotics for community-acquired pneumonia with Rocephin and azithromycin but downgrade - urine Legionella urine pneumococcal and serum mycoplasma titer ordered and pending -pt had 40 years moking history- cessation education completed- pt states he is done with smoking and not planning on restarting. The patient did have an elevated troponin but his troponin profile was flat. His troponin levels are not indicative of acute myocardial event. Possibly due to demand ischemia. The patient does have transaminitis probably due to distant history of heavy alcohol use. He stated that he quit drinking alcohol in 1999. Prior to quitting he used to drink 6-8 beers a day. Will check right upper quadrant ultrasound. Time Spent With Patient Time with patient: 25 - 35 minutes Subjective Date/time seen: 04/02/25 11:38 Interval history: 54-year-old male previously healthy except for smoking 1 pack per day since he was a teenager and depression following his 's in 2019 who presented to the ER with cough and shortness of breath for about 5 days. He reports he has also been having night sweats for the same amount of time. His cough is productive of white sputum. He did not measure his temperature but he was afebrile on arrival to the ER. He does note that he has noticed himself wheezing for the last year. He has been told by his primary care provider that he should stop smoking. He sees Dr. Francois at [place]. He reported that about 2 days ago he also noticed some mild lower extremity swelling. He has been having some dyspnea on exertion. He also has been having fatigue that is new onset. He denies any orthopnea or paroxysmal nocturnal dyspnea. He does snore intermittently but reports that he feels well rested when he wakes up. He is still smoking 1 pack of cigarettes per day. He reports that he feels markedly better after receiving steroids and nebulizer treatments in the ER. He reports he feels close to his baseline and is eager to go home. His lower extremity edema has resolved. Pt is seen and examined. He is back to his baseline and feels great.NO chest pain, no sob. Review of Systems Review of Systems: 12 systems were reviewed with pertinent positives and negatives per HPI. Except as documented in the HPI, all other systems were reviewed and are negative. Exam Narrative: Weight 79.9 kg BMI 27.6 Const: General: comfortable Resp: Effort & Inspection: normal respiratory effort Cardio: Rate: tachycardic Rhythm: regular rhythm Skin: General skin exam: normal color Psych: Affect: normal affect Objective Data Vital Signs Vital Signs: Vital Signs - 24 hr 04/01/25 15:15 04/01/25 17:49 04/01/25 19:40 Temperature 97.7 F 97.3 F L Pulse Rate 108 H 100 101 H Respiratory Rate 22 H 20 20 Blood Pressure 125/92 H 126/95 H Pulse Oximetry 98 98 Oxygen Delivery Room Air 04/01/25 20:22 04/01/25 21:39 04/01/25 22:00 Temperature 97.3 F L Pulse Rate 98 105 H Respiratory Rate 20 18 Blood Pressure 141/89 H 129/82 Pulse Oximetry 96 97 97 Oxygen Delivery Room Air 04/02/25 00:00 04/02/25 02:41 04/02/25 02:50 Temperature Pulse Rate 108 H 100 100 Respiratory Rate 20 20 Blood Pressure Pulse Oximetry Oxygen Delivery 04/02/25 05:37 04/02/25 05:57 04/02/25 08:00 Temperature 97.1 F L Pulse Rate 109 H 104 H Respiratory Rate 19 Blood Pressure 124/90 Pulse Oximetry 94 Oxygen Delivery Room Air 04/02/25 08:00 Temperature Pulse Rate 106 H Respiratory Rate Blood Pressure Pulse Oximetry Oxygen Delivery Intake/Output Intake/Output: Intake & Output 03/30/25 03/31/25 04/01/25 04/02/25 23:59 23:59 23:59 23:59 Intake Total 50 240 Balance 50 240 Meds/Results Medications: Active Medications Generic Name Dose Route Start Last Admin Trade Name Freq PRN Reason Stop Dose Admin Albuterol 2.5 mg 04/02/25 02:00 04/02/25 02:39 Albuterol Sulfate Neb 2.5 Mg/3 Ml Inh INHALATION 2.5 mg Q6HRT JOSE Administration Aspirin 81 mg 04/02/25 08:00 04/02/25 09:31 Aspirin 81 Mg Chewable Tablet PO 81 mg DAILY@0800 [facility] Administration Enoxaparin Sodium 40 mg 04/02/25 09:00 04/02/25 09:32 Enoxaparin 40 Mg/0.4 Ml Syringe SUB-Q 40 mg DAILY JOSE Administration Ceftriaxone Sodium 1 gm in 50 mls @ 100 mls/hr 04/02/25 20:00 Rocephin 1 Gm/Ns 50 Ml IVPB Q24H JOSE Azithromycin 500 mg in 250 mls @ 250 mls/hr 04/02/25 20:00 Zithromax IVPB Q24H JOSE Prednisone 60 mg 04/03/25 08:00 Prednisone 20 Mg Tablet PO 04/08/25 07:59 DAILY@0800 [facility] Radiology Results: ITS Impressions Chest X-Ray 04/01/25 18:15 IMPRESSION: Right middle lobe infiltrate. Upper Quadrant Ultrasound 04/02/25 09:45 IMPRESSION: 1. Indeterminate 1.6 cm hyperechoic nodules in the right hepatic lobe which in the absence of known liver disease or prior primary malignancy would be most likely to represent a hemangioma. Could consider multiphase pre and postcontrast MRI or CT for more definitive determination as clinically indicated. Labs Labs: Laboratory Results - last 24 hr 04/01/25 04/01/25 04/01/25 17:37 20:26 20:51 WBC 10.5 H RBC 4.71 Hgb 14.2 Hct 43.8 MCV 93.0 MCH 30.1 MCHC 32.4 RDW 14.0 Plt Count 221 MPV 12.3 H Immature Gran % (Auto) 0.5 Neut % (Auto) 64.6 Lymph % (Auto) 24.0 [place] % (Auto) 9.0 H Eos % (Auto) 1.1 Baso % (Auto) 0.8 Lymph # (Auto) 2.53 [place] # (Auto) 1.0 H Eos # (Auto) 0.1 Baso # (Auto) 0.1 Abs Immat Gran (auto) 0.05 H Absolute Neuts (auto) 6.8 H Absolute Nucleated RBC 0.000 Nucleated RBC % 0.0 PT 15.7 H INR 1.3 APTT 28.4 Sodium 136 L Potassium 4.6 Chloride 105 Carbon Dioxide 22 Anion Gap 9 BUN 24 H Creatinine 1.24 Estim Creat Clear Calc 56 Estimated GFR 60 Glucose 129 H Calcium 9.1 Magnesium 2.1 Total Bilirubin 1.2 AST 63 H ALT 74 H Alkaline Phosphatase 56 Troponin I 0.065 H* 0.071 H* NT-Pro-B Natriuret Pep 8030 H Total Protein 6.4 Albumin 3.6 Urine Color Yellow Urine Appearance Clear Urine pH 5.5 Ur Specific [place] 1.009 Urine Protein Negative Urine Glucose (UA) Negative Urine Ketones Negative Ur Blood (Man) Negative Urine Nitrate Negative Urine Bilirubin Negative Urine Urobilinogen 0.2 Leukocyte Esterase Rfl Trace H Urine RBC 0-2 Urine WBC 0-5 Ur Squamous Epith Cells None seen Urine Bacteria None seen Urine Casts 0-2 04/01/25 04/02/25 04/02/25 23:24 02:20 06:29 WBC 8.9 RBC 4.70 Hgb 14.3 Hct 43.0 MCV 91.5 MCH 30.4 MCHC 33.3 RDW 13.9 Plt Count 220 MPV 11.9 H Immature Gran % (Auto) Neut % (Auto) Lymph % (Auto) [place] % (Auto) Eos % (Auto) Baso % (Auto) Lymph # (Auto) [place] # (Auto) Eos # (Auto) Baso # (Auto) Abs Immat Gran (auto) Absolute Neuts (auto) Absolute Nucleated RBC Nucleated RBC % PT INR APTT Sodium 136 L Potassium 4.1 Chloride 104 Carbon Dioxide 21 L Anion Gap 11 BUN 24 H Creatinine 1.12 Estim Creat Clear Calc 61 Estimated GFR > 60 Glucose 169 H Calcium 8.6 Magnesium Total Bilirubin 1.0 AST 65 H ALT 78 H Alkaline Phosphatase 60 Troponin I 0.075 H* 0.059 H* D NT-Pro-B Natriuret Pep Total Protein 6.7 Albumin 3.8 Urine Color Urine Appearance Urine pH Ur Specific [place] Urine Protein Urine Glucose (UA) Urine Ketones Ur Blood (Man) Urine Nitrate Urine Bilirubin Urine Urobilinogen Leukocyte Esterase Rfl Urine RBC Urine WBC Ur Squamous Epith Cells Urine Bacteria Urine Casts Quality VTE Prophylaxis VTE prophylaxis: pharmacologic ordered (Lovenox 40 mg subQ daily.)
--- NOTE | 2025-04-02 12:48 | PM.DS ---
DS: Admitting Diagnosis Discharge Date 04/02 Admitting Diagnosis sob, wheezing DS: Discharge Diagnosis Discharge Diagnosis (1) Community acquired pneumonia: Qualifiers: Laterality: right Lung location: middle lobe of lung Qualified Code(s): J18.9 - Pneumonia, unspecified organism Code(s): J18.9 - Pneumonia, unspecified organism Status: Acute (2) Elevated troponin: Code(s): R79.89 - Other specified abnormal findings of blood chemistry Status: Acute (3) Bilateral edema of lower extremity: Code(s): R60.0 - Localized edema Status: Acute (4) Dyspnea on exertion: Code(s): R06.09 - Other forms of dyspnea Status: Acute DS: Summary Hospital Course Hospital Course: Given the patient's report of wheezing for the last year he likely has some underlying COPD. Pt received steroids and nebulizer treatments and was started on azithromax and rocephin. His lower extremity edema has resolved. He did not have any progressive symptoms of dyspnea on exertion all of his symptoms seem to be acute in nature. Less suspicion for congestive heart failure given the patient's report of symptoms. However will still obtain echocardiogram to rule out CHF. Will continue patient on scheduled nebulizers and will transition to oral steroids prednisone 60 mg p.o. for 5 days. Will continue antibiotics for community-acquired pneumonia with Rocephin and azithromycin. Will check urine Legionella urine pneumococcal and serum mycoplasma titer. He 10 minutes was spent in smoking cessation education with the patient. Patient seems motivated to quit smoking but does not want a nicotine patch at this time. He reports that he has multiple nicotine supplements at home that his primary care provider as provider for him. The patient did have an elevated troponin but his troponin profile was flat. His troponin levels are not indicative of acute myocardial event. Possibly due to demand ischemia. The patient does have transaminitis. The patient does have a distant history of heavy alcohol use. He stated that he quit drinking alcohol in 1999. Prior to quitting he used to drink 6-8 beers a day. Will check right upper quadrant ultrasound. MEDICAL DECISION MAKING NARRATIVE -Spoke with the ED provider in detail regarding patient's evaluation, workup and management -Patient seen and examined at bedside -Collaborated with patient's nurse at the bedside in detail and addressed all concerns -Labs, electrolytes, radiology, investigations and test results reviewed -ED/Consult/Nursing/Ancilliary notes on the chart reviewed and appreciated Time Spent with Patient Time attestation: Total time spent providing and/or coordinating discharge services: Exam Narrative: Weight 79.9 kg BMI 27.6 DS: Data Data Completed and Pending Labs on day of discharge: Labs from last 24 hours 04/02/25 04/02/25 04/01/25 06:29 02:20 23:24 WBC 8.9 RBC 4.70 Hgb 14.3 Hct 43.0 MCV 91.5 MCH 30.4 MCHC 33.3 RDW 13.9 Plt Count 220 MPV 11.9 H Immature Gran % (Auto) Neut % (Auto) Lymph % (Auto) [place] % (Auto) Eos % (Auto) Baso % (Auto) Lymph # (Auto) [place] # (Auto) Eos # (Auto) Baso # (Auto) Abs Immat Gran (auto) Absolute Neuts (auto) Absolute Nucleated RBC Nucleated RBC % PT INR APTT Sodium 136 L Potassium 4.1 Chloride 104 Carbon Dioxide 21 L Anion Gap 11 BUN 24 H Creatinine 1.12 Estim Creat Clear Calc 61 Estimated GFR > 60 Glucose 169 H Calcium 8.6 Magnesium Total Bilirubin 1.0 AST 65 H ALT 78 H Alkaline Phosphatase 60 Troponin I 0.059 H* D 0.075 H* NT-Pro-B Natriuret Pep Total Protein 6.7 Albumin 3.8 Urine Color Urine Appearance Urine pH Ur Specific [place] Urine Protein Urine Glucose (UA) Urine Ketones Ur Blood (Man) Urine Nitrate Urine Bilirubin Urine Urobilinogen Leukocyte Esterase Rfl Urine RBC Urine WBC Ur Squamous Epith Cells Urine Bacteria Urine Casts Mycoplasma pneumon IgM Pending 04/01/25 04/01/25 04/01/25 20:51 20:26 17:37 WBC 10.5 H RBC 4.71 Hgb 14.2 Hct 43.8 MCV 93.0 MCH 30.1 MCHC 32.4 RDW 14.0 Plt Count 221 MPV 12.3 H Immature Gran % (Auto) 0.5 Neut % (Auto) 64.6 Lymph % (Auto) 24.0 [place] % (Auto) 9.0 H Eos % (Auto) 1.1 Baso % (Auto) 0.8 Lymph # (Auto) 2.53 [place] # (Auto) 1.0 H Eos # (Auto) 0.1 Baso # (Auto) 0.1 Abs Immat Gran (auto) 0.05 H Absolute Neuts (auto) 6.8 H Absolute Nucleated RBC 0.000 Nucleated RBC % 0.0 PT 15.7 H INR 1.3 APTT 28.4 Sodium 136 L Potassium 4.6 Chloride 105 Carbon Dioxide 22 Anion Gap 9 BUN 24 H Creatinine 1.24 Estim Creat Clear Calc 56 Estimated GFR 60 Glucose 129 H Calcium 9.1 Magnesium 2.1 Total Bilirubin 1.2 AST 63 H ALT 74 H Alkaline Phosphatase 56 Troponin I 0.071 H* 0.065 H* NT-Pro-B Natriuret Pep 8030 H Total Protein 6.4 Albumin 3.6 Urine Color Yellow Urine Appearance Clear Urine pH 5.5 Ur Specific [place] 1.009 Urine Protein Negative Urine Glucose (UA) Negative Urine Ketones Negative Ur Blood (Man) Negative Urine Nitrate Negative Urine Bilirubin Negative Urine Urobilinogen 0.2 Leukocyte Esterase Rfl Trace H Urine RBC 0-2 Urine WBC 0-5 Ur Squamous Epith Cells None seen Urine Bacteria None seen Urine Casts 0-2 Mycoplasma pneumon IgM Discharge Plan Discharge Patient Language: Dominican Discharge Medications: No Action nicotine 14 mg/24 hr patch 24 hour nicotine (polacrilex) 4 mg gum Date of admission: 04/01/25 20:35 Primary Care Provider: UNKNOWN,DOCTOR Admitting Provider: Cris Robbins Attending physician on admission: Cris Robbins Condition: Serious Quality VTE Prophylaxis VTE prophylaxis: pharmacologic ordered (Lovenox 40 mg subQ daily.)
--- NOTE | 2025-04-02 15:46 | P.CONCA_ITS ---
Assessment and Plan Assessment and plan (1) Cardiomyopathy: Code(s): I42.9 - Cardiomyopathy, unspecified Status: Acute Assessment and Plan: EF 25-30%. This is a new diagnosis. Etiology unknown, but perhaps secondary to methamphetamine use. * Will introduce GDMT with Entresto 24-26 mg b.i.d. and carvedilol 3.125 mg b.i.d.. * Optimize medical therapy as an outpatient with addition of spironolactone, Jardiance and up titration of Entresto and beta-elisha to target doses. * Will order LifeVest * Coronary angiogram as an outpatient to assess for underlying coronary artery disease * CHF counseling * Check BMP tomorrow * Closely monitor BP (2) Nicotine dependence with current use: Code(s): F17.200 - Nicotine dependence, unspecified, uncomplicated Status: Acute Assessment and Plan: Counseling performed (3) Bilateral edema of lower extremity: Code(s): R60.0 - Localized edema Status: Acute Assessment and Plan: Resolved. (4) Dyspnea on exertion: Code(s): R06.09 - Other forms of dyspnea Status: Acute Assessment and Plan: Resolved. History of Present Illness History of Present Illness Consult date/time: 04/02/25 15:46 Requesting physician: Zachery Wolf PA-C Consult reason: congestive heart failure Reason For Visit: CHF, Elevated troponin, Dyspnea on exertion Narrative: Nicanor Cobb is a 54-year-old male with no significant past medical history. This patient presented to the hospital with complaints of progressive shortness of breath and lower extremity swelling. An echocardiogram was performed that revealed reduced left ventricular systolic function with EF of 25-30%. This is the diagnosis. Patient denies having any prior cardiac problems. He denies any chest pain, palpitations, syncope, presyncope, orthopnea. Reports occasional methamphetamine use. He is feeling much better after receiving IV Lasix and is hoping to go home today. Review of Systems 2 Review of Systems: All systems reviewed & are unremarkable except as noted in HPI and below PMFSH Past Medical History Medical History Anxiety and depression Nicotine dependence with current use Surgical History Surgical History History of appendectomy Social History Social History Social History: He has been since 2019. He lives with his father and uncle. 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 He does not have any children. 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 He still smokes 1 pack of cigarettes per day and started when he was a teenager. He occasionally uses marijuana. Code status: Full code Surrogate decision maker: Tee Cobb (father) Smoking packs per day: 1 Smoking cigarettes per day: 20.0 Years smoked: 40 Smoking pack-years: 40.00 Smoking status: Current every day smoker Tobacco type: cigarettes Alcohol intake: former Alcohol use details: Patient reports he used to drink date alcoholic beverages a day but quit drinking alcohol in 1999. Do You Feel Safe in your Home?: Yes Lack of Transportation: No Lack of Food: Never True Current Housing: I Have Housing Concerned About Future Housing: No Difficulty Paying Gas/Electric Bills: No Difficulty Paying for Meds: No Currently Unemployed: No Education: Don't Know Difficulty w/ Childcare or Family Care: No Spiritual care concerns: No Meds Home Medications and Allergies Home Medications ?Medication ?Instructions ?Recorded ?Confirmed ?Type nicotine (polacrilex) 4 mg gum mg 04/01/25 History nicotine 14 mg/24 hr daily 04/01/25 History transdermal patch Allergies Allergy/AdvReac Type Severity Reaction Status Date / Time No Known Allergies Allergy Mild Verified 04/01/25 13:47 Vital Signs Vital Signs - 24 hr 04/01/25 17:49 04/01/25 19:40 04/01/25 20:22 Temperature 36.3 C L Pulse Rate 100 101 H Respiratory Rate 20 20 Blood Pressure 126/95 H Pulse Oximetry 98 96 Oxygen Delivery Room Air 04/01/25 21:39 04/01/25 22:00 04/02/25 00:00 Temperature 36.3 C L Pulse Rate 98 105 H 108 H Respiratory Rate 20 18 Blood Pressure 141/89 H 129/82 Pulse Oximetry 97 97 Oxygen Delivery 04/02/25 02:41 04/02/25 02:50 04/02/25 05:37 Temperature 36.2 C L Pulse Rate 100 100 109 H Respiratory Rate 20 20 19 Blood Pressure 124/90 Pulse Oximetry 94 Oxygen Delivery 04/02/25 05:57 04/02/25 08:00 04/02/25 08:00 Temperature Pulse Rate 104 H 106 H Respiratory Rate Blood Pressure Pulse Oximetry Oxygen Delivery Room Air 04/02/25 14:00 Temperature 36.2 C L Pulse Rate 108 H Respiratory Rate 18 Blood Pressure 127/61 Pulse Oximetry 95 Oxygen Delivery Exam 2 Const: General: comfortable, no acute distress, alert and awake O rientation/consciousness: patient oriented x3 HENMT: Head: normal to inspection Eyes: General: appearance normal, both eyes and all related structures P upils: Equal, round and reactive pupils present Neck: Neck: normal visual inspection, supple and no JVD Carotids: normal carotid upstroke Resp: Effort & Inspection: normal respiratory effort Auscultation: clear to auscultation bilaterally Cardio: Rate: regular rate Rhythm: regular rhythm Heart sounds: S1 normal heart sound present, S2 normal heart sound present and no murmurs GI: Auscultation: normal bowel sounds Skin: General skin exam: normal color Neuro: General: patient oriented x3 Cranial nerves: Yes Equal, round and reactive pupils present Extrem: General: normal to inspection Psych: Appearance: grossly normal Mental Status: mental status grossly normal Results Labs and Meds 04/02/25 06:29 04/02/25 06:29 Lab results: Cardiac Enzymes 04/01/25 04/01/25 04/01/25 Range/Units 17:37 20:26 23:24 AST 63 H (17-59) U/L Troponin I 0.065 H* 0.071 H* 0.075 H* (0.000-0.034) ng/mL 04/02/25 04/02/25 Range/Units 02:20 06:29 AST 65 H (17-59) U/L Troponin I 0.059 H* D (0.000-0.034) ng/mL Coagulation 04/01/25 Range/Units 17:37 PT 15.7 H (11.1-14.7) Seconds APTT 28.4 (22.3-36.8) Seconds CBC 04/01/25 04/02/25 Range/Units 17:37 06:29 WBC 10.5 H 8.9 (4.5-10.0) K/mm3 RBC 4.71 4.70 (4.6-6.20) M/mm3 Hgb 14.2 14.3 (14.0-18.0) g/dL Hct 43.8 43.0 (42.0-52.0) % Plt Count 221 220 (150-375) k/mm3 Lymph # (Auto) 2.53 (0.9-3.2) K/mm3 [place] # (Auto) 1.0 H (0.1-0.6) K/mm3 Eos # (Auto) 0.1 (0-0.3) K/mm3 Baso # (Auto) 0.1 (0.0-0.1) K/mm3 Comprehensive Metabolic Panel 04/01/25 04/02/25 Range/Units 17:37 06:29 Sodium 136 L 136 L (137-145) mmol/L Potassium 4.6 4.1 (3.4-5.0) mmol/L Chloride 105 104 (98-107) mmol/L Carbon Dioxide 22 21 L (22-30) mmol/L BUN 24 H 24 H (9-20) mg/dL Creatinine 1.24 1.12 (0.7-1.3) mg/dL Glucose 129 H 169 H (65-110) mg/dL Calcium 9.1 8.6 (8.4-10.2) mg/dL AST 63 H 65 H (17-59) U/L ALT 74 H 78 H (6-50) U/L Alkaline Phosphatase 56 60 (38-126) U/L Total Protein 6.4 6.7 (6.3-8.2) g/dL Albumin 3.6 3.8 (3.5-5.1) g/dL Intake and Output 04/01/25 04/02/25 04/02/25 23:59 07:59 15:59 Intake Total 50 480 Balance 50 480 Intake: IV 50 cefTRIAXone 1 GM/NS 50 ML 1 gm 50 In 50 ml @ 100 mls/hr IVPB ONCE STA Rx#:[id number] Oral 480 Other: # Unmeasured Voids 1
[2025-04-02] MEDS: AMOXICILLIN/CLAVULANATE K 875-125 MG TAB 1 TABLET PO (21:15)
[2025-04-02] MEDS: AZITHROMYCIN 250 MG TABLET 500 MG PO (21:15)
[2025-04-02] MEDS: carvediloL 3.125 MG TABLET PO (21:15)
[2025-04-02] MEDS: SACUBITRIL/VALSARTAN 24-26 MG TABLET 1 TAB PO (21:15)
[2025-04-03] VITALS (19 sets, daily range): BP systolic 91–120; BP diastolic 63–80; PULSE 81–111; RESP 18–24; TEMP 35.9–36.6; O2SAT 94–100
[2025-04-03] MEDS: ALBUTEROL SULFATE NEB 2.5 MG/3 ML INH INHALATION ×4 (02:09→19:52)
--- NOTE | 2025-04-03 09:37 | PM.IMPN ---
Progress Note: A&P Assessment and Plan (1) Community acquired pneumonia: Qualifiers: Laterality: right Lung location: middle lobe of lung Qualified Code(s): J18.9 - Pneumonia, unspecified organism Code(s): J18.9 - Pneumonia, unspecified organism Status: Acute Assessment and Plan: CXR: right middle lobe infiltrate - started on CAP tx: azithromycin ceftriaxone on 04/02, transitioned to PO Augmentin and azithromycin to complete the course - Given the patient's report of wheezing for the last year he likely has some underlying COPD. I suspect he has an acute COPD exacerbation due to possible community-acquired pneumonia. Will continue patient on scheduled nebulizers and will transition to oral steroids prednisone 60 mg p.o. for 5 days. - legionella, mycoplasma and pneumococcal ordered - no supplemental O2 requirement - Monitor vital signs, I&Os, neuro status and patient is a fall risk - Follow WBC, serum electrolytes, temperature curves and cultures Patient has increase in WBC, however likely due to prednisone. Patient denies shortness of breath and cough. States he is feeling better. (2) Cardiomyopathy: Code(s): I42.9 - Cardiomyopathy, unspecified Status: Acute Assessment and Plan: Echo showed an EF 25-30%. This is a new diagnosis. Etiology unknown, but perhaps secondary to methamphetamine use. - Monitor vital signs, I&Os, BUN/creatinine, daily weights, neuro status and patient is a fall risk - Monitor serum electrolytes, Keep serum Potassium>4 and serum Magnesium>2 and CBC - Cardiology consulted Will introduce GDMT with Entresto 24-26 mg b.i.d. and carvedilol 3.125 mg b.i.d.. Optimize medical therapy as an outpatient with addition of spironolactone, Jardiance and up titration of Entresto and beta-elisha to target doses. LifeVest ordered, waiting on patient to receive it. Plan for coronary angiogram as an outpatient to assess for underlying coronary artery disease (3) Elevated troponin: Code(s): R79.89 - Other specified abnormal findings of blood chemistry Status: Acute Assessment and Plan: The patient did have an elevated troponin but his troponin levels remained flat and were not indicative of acute myocardial event. Possibly due to demand ischemia. No complaints of chest pain. (4) Methamphetamine use: Code(s): F15.10 - Other stimulant abuse, uncomplicated Status: Acute Assessment and Plan: Patient snorts methamphetamine weekly. Last used 1 week ago. Strongly encouraged drug cessation. Patient stated understanding and plans to quit. Time Spent With Patient Time with patient: 25 - 35 minutes Subjective Date/time seen: 04/03/25 09:37 Interval history: 54-year-old male previously healthy except for smoking 1 pack per day since he was a teenager and depression following his 's in 2019 who presented to the hospital with cough and shortness of breath for about 5 days. Patient is pleasant walking around his room. He continues to endorse slight fatigue that is unchanged since admission. He states that his shortness of breath has completely resolved since admission. He has no other complaints denying chest pain, palpitations, nausea/vomiting and abdominal pain. Review of Systems Review of Systems: All systems reviewed & are unremarkable except as noted in HPI and below Exam Narrative: AF HR 83 RR 18 Spo2 100 BP 91/63 General: male in no acute respiratory distress who is nontoxic appearing, sitting on side of bed. HEENT: Normocephalic. Atraumatic. Extraocular movement intact. Sclera clear and anicteric. No facial asymmetry. Chest: Lungs are clear to auscultation bilaterally. No wheezes or crackles. CV: Heart was regular rate and rhythm. S1/S2. No murmurs, gallops, or rubs. Abd: Abdomen was soft. Nontender. Nondistended. Positive bowel sounds. Ext: No clubbing, cyanosis, or edema. DP pulses bilaterally. Neuro: Patient is alert and oriented x4. Speech is clear. Objective Data Vital Signs Vital Signs: Vital Signs - 24 hr 04/02/25 12:00 04/02/25 14:00 04/02/25 20:00 Temperature 97.2 F L Pulse Rate 103 H 108 H 112 H Respiratory Rate 18 Blood Pressure 127/61 Pulse Oximetry 95 Oxygen Delivery 04/02/25 20:04 04/02/25 20:06 04/02/25 20:19 Temperature 97.7 F Pulse Rate 105 H 115 H 113 H Respiratory Rate 18 18 18 Blood Pressure 123/95 H Pulse Oximetry 97 Oxygen Delivery 04/02/25 21:15 04/03/25 00:00 04/03/25 02:10 Temperature Pulse Rate 110 H 101 H 108 H Respiratory Rate 18 Blood Pressure Pulse Oximetry Oxygen Delivery 04/03/25 02:16 04/03/25 04:00 04/03/25 05:51 Temperature 97.4 F L Pulse Rate 111 H 87 103 H Respiratory Rate 18 18 Blood Pressure 120/80 Pulse Oximetry 94 Oxygen Delivery 04/03/25 08:00 04/03/25 08:02 04/03/25 08:02 Temperature Pulse Rate 110 H Respiratory Rate 20 Blood Pressure Pulse Oximetry 97 Oxygen Delivery Room Air Room Air 04/03/25 08:14 Temperature Pulse Rate 90 Respiratory Rate 20 Blood Pressure Pulse Oximetry Oxygen Delivery Intake/Output Intake/Output: Intake & Output 03/31/25 04/01/25 04/02/25 04/03/25 23:59 23:59 23:59 23:59 Intake Total 300 720 240 Balance 300 720 240 Meds/Results Medications: Active Medications Generic Name Dose Route Start Last Admin Trade Name Freq PRN Reason Stop Dose Admin Albuterol 2.5 mg 04/02/25 02:00 04/03/25 08:02 Albuterol Sulfate Neb 2.5 Mg/3 Ml Inh INHALATION 2.5 mg Q6HRT JOSE Administration Amoxicillin/Clavulanate Potassium 1 tablet 04/02/25 21:00 04/02/25 21:15 Amoxicillin/Clavulanate K 875-125 Mg Tab PO 04/06/25 09:01 1 tablet Q12HR JOSE Administration Aspirin 81 mg 04/02/25 08:00 04/02/25 09:31 Aspirin 81 Mg Chewable Tablet PO 81 mg DAILY@0800 [facility] Administration Azithromycin 500 mg 04/02/25 21:00 04/02/25 21:15 Azithromycin 250 Mg Tablet PO 04/05/25 21:01 500 mg QHS JOSE Administration Carvedilol 3.125 mg 04/02/25 21:00 04/02/25 21:15 Carvedilol 3.125 Mg Tablet PO 3.125 mg Q12HR JOSE Administration Enoxaparin Sodium 40 mg 04/02/25 09:00 04/02/25 09:32 Enoxaparin 40 Mg/0.4 Ml Syringe SUB-Q 40 mg DAILY JOSE Administration Prednisone 60 mg 04/03/25 08:00 Prednisone 20 Mg Tablet PO 04/08/25 07:59 DAILY@0800 [facility] Sacubitril/Valsartan 1 tab 04/02/25 21:00 04/02/25 21:15 Sacubitril/Valsartan 24-26 Mg Tablet PO 1 tab Q12HR JOSE Administration Radiology Results: ITS Impressions Chest X-Ray 04/01/25 18:15 IMPRESSION: Right middle lobe infiltrate. Upper Quadrant Ultrasound 04/02/25 09:45 IMPRESSION: 1. Indeterminate 1.6 cm hyperechoic nodules in the right hepatic lobe which in the absence of known liver disease or prior primary malignancy would be most likely to represent a hemangioma. Could consider multiphase pre and postcontrast MRI or CT for more definitive determination as clinically indicated. Quality VTE Prophylaxis VTE prophylaxis: pharmacologic ordered (Lovenox 40 mg subQ daily.)
[2025-04-03 09:58] LABS: Hematocrit 40.7 % (42.0-52.0); Mean Corpuscular HGB Conc 31.9 g/dl (32-36); Mean Corpuscular Hemoglobin 30.2 pg (26-34); Mean Corpuscular Volume 94.7 fl (80-100); Mean Platelet Volume 11.6 fl (7.4-10.4); Platelet Count Result 206 k/mm3 (150-375); Red Cell Distribution Width 14.4 % (11.5-14.5); White Blood Count 16.2 K/mm3 (4.5-10.0)
[2025-04-03] MEDS: SACUBITRIL/VALSARTAN 24-26 MG TABLET 1 TAB PO ×2 (10:02→20:44)
[2025-04-03] MEDS: ENOXAPARIN 40 MG/0.4 ML SYRINGE SUB-Q (10:02)
[2025-04-03] MEDS: predniSONE 20 MG TABLET 60 MG PO (10:02)
[2025-04-03] MEDS: ASPIRIN 81 MG CHEWABLE TABLET PO (10:02)
[2025-04-03] MEDS: carvediloL 3.125 MG TABLET PO (10:02)
[2025-04-03] MEDS: AMOXICILLIN/CLAVULANATE K 875-125 MG TAB 1 TABLET PO ×2 (10:03→20:44)
[2025-04-03 10:11] LABS: Alanine Aminotransferase 71 U/L (6-50); Albumin Level 3.5 g/dL (3.5-5.1); Alkaline Phosphatase 51 U/L (38-126); Anion Gap 9 mmol/L (4-12); Aspartate Amino Transferase 55 U/L (17-59); Bilirubin,Total 0.4 mg/dL (0.2-1.3); Blood Urea Nitrogen 28 mg/dL (9-20); Calcium 8.2 mg/dL (8.4-10.2); Carbon Dioxide 25 mmol/L (22-30); Chloride 104 mmol/L (98-107); Estimated CRCL calculation 56 ml/min; Estimated Glomerular Filt Rate > 60; Glucose 147 mg/dL (65-110); Sodium 138 mmol/L (137-145); Total Protein 6.2 g/dL (6.3-8.2)
--- NOTE | 2025-04-03 12:32 | PM.PNCARD ---
Progress Note: A&P Assessment and Plan (1) Congestive heart failure: Code(s): I50.9 - Heart failure, unspecified Status: Acute Plan 54-year-old man with methamphetamine abuse and tobacco abuse presented with shortness of breath found to be in acute decompensated systolic heart failure Acute decompensated systolic heart failure -will be fitted for LifeVest today -will switch carvedilol to metoprolol succinate 25 mg p.o. daily given inability to had other guideline directed medical therapy due to blood pressure and patient understands consequences if he continues to use amphetamine based products while on metoprolol and agrees to continue to metoprolol for now -continue Entresto 24-26 mg p.o. b.i.d. -add spironolactone 12.5 mg p.o. daily -add Jardiance 10 mg p.o. daily Methamphetamine abuse -we have discussed the detrimental effects of illicit drug use cardiovascular health -patient agrees and expressed understanding and will stop using illicit drugs Tobacco abuse -we discussed the detrimental effects of tobacco use and patient agreed to stop tobacco products If patient is able to tolerate the above medication adjustments, can be discharged to follow-up in clinic Subjective Date/time seen: 04/03/25 12:32 Interval history: Feels better today. No chest pain or shortness of breath. Has clear understanding that likely etiology of his heart failure is from methamphetamine use. He would understands the potential dangers effects of using amphetamine based products while on metoprolol. Review of Systems Cardiovascular: Cardiovascular: Reports as per HPI Respiratory: Respiratory: Reports as per HPI Exam Const: General: comfortable HENMT: Mouth: Yes moist mucous membranes Eyes: EOM: EOMs intact bilaterally Neck: Neck: no JVD Resp: Effort & Inspection: normal respiratory effort Auscultation: clear to auscultation bilaterally Cardio: Rate: regular rate Rhythm: regular rhythm GI: GI Palp: Yes Soft to palpation Extrem: General: no pedal edema Objective Data Vital Signs Vital Signs: Vital Signs - 24 hr 04/02/25 14:00 04/02/25 20:00 04/02/25 20:04 Temperature 36.2 C L Pulse Rate 108 H 112 H 105 H Respiratory Rate 18 18 Blood Pressure 127/61 Pulse Oximetry 95 Oxygen Delivery 04/02/25 20:06 04/02/25 20:19 04/02/25 21:15 Temperature 36.5 C Pulse Rate 115 H 113 H 110 H Respiratory Rate 18 18 Blood Pressure 123/95 H Pulse Oximetry 97 Oxygen Delivery 04/03/25 00:00 04/03/25 02:10 04/03/25 02:16 Temperature Pulse Rate 101 H 108 H 111 H Respiratory Rate 18 18 Blood Pressure Pulse Oximetry Oxygen Delivery 04/03/25 04:00 04/03/25 05:51 04/03/25 08:00 Temperature 36.3 C L Pulse Rate 87 103 H Respiratory Rate 18 Blood Pressure 120/80 Pulse Oximetry 94 Oxygen Delivery Room Air 04/03/25 08:00 04/03/25 08:02 04/03/25 08:02 Temperature Pulse Rate 91 110 H Respiratory Rate 20 Blood Pressure Pulse Oximetry 97 Oxygen Delivery Room Air 04/03/25 08:14 04/03/25 10:02 04/03/25 12:00 Temperature Pulse Rate 90 90 90 Respiratory Rate 20 Blood Pressure Pulse Oximetry Oxygen Delivery Intake/Output Intake/Output: Intake & Output 03/31/25 04/01/25 04/02/25 04/03/25 23:59 23:59 23:59 23:59 Intake Total 300 720 240 Balance 300 720 240 Meds/Results Medications: Active Medications Generic Name Dose Route Start Last Admin Trade Name Freq PRN Reason Stop Dose Admin Albuterol 2.5 mg 04/02/25 02:00 04/03/25 08:02 Albuterol Sulfate Neb 2.5 Mg/3 Ml Inh INHALATION 2.5 mg Q6HRT JOSE Administration Amoxicillin/Clavulanate Potassium 1 tablet 04/02/25 21:00 04/03/25 10:03 Amoxicillin/Clavulanate K 875-125 Mg Tab PO 04/06/25 09:01 1 tablet Q12HR JOSE Administration Aspirin 81 mg 04/02/25 08:00 04/03/25 10:02 Aspirin 81 Mg Chewable Tablet PO 81 mg DAILY@0800 JOSE Administration Azithromycin 500 mg 04/02/25 21:00 04/02/25 21:15 Azithromycin 250 Mg Tablet PO 04/05/25 21:01 500 mg QHS JOSE Administration Carvedilol 3.125 mg 04/02/25 21:00 04/03/25 10:02 Carvedilol 3.125 Mg Tablet PO 3.125 mg Q12HR JOSE Administration Enoxaparin Sodium 40 mg 06/24/25 09:00 04/03/25 10:02 Enoxaparin 40 Mg/0.4 Ml Syringe SUB-Q 40 mg DAILY JOSE Administration Prednisone 60 mg 04/03/25 08:00 04/03/25 10:02 Prednisone 20 Mg Tablet PO 04/08/25 07:59 60 mg DAILY@0800 JOSE Administration Sacubitril/Valsartan 1 tab 04/02/25 21:00 04/03/25 10:02 Sacubitril/Valsartan 24-26 Mg Tablet PO 1 tab Q12HR JOSE Administration Radiology Results: ITS Impressions Chest X-Ray 04/01/25 18:15 IMPRESSION: Right middle lobe infiltrate. Upper Quadrant Ultrasound 04/02/25 09:45 IMPRESSION: 1. Indeterminate 1.6 cm hyperechoic nodules in the right hepatic lobe which in the absence of known liver disease or prior primary malignancy would be most likely to represent a hemangioma. Could consider multiphase pre and postcontrast MRI or CT for more definitive determination as clinically indicated. Labs Labs: Laboratory Results - last 24 hr 04/03/25 09:53 WBC 16.2 H RBC 4.30 L Hgb 13.0 L Hct 40.7 L MCV 94.7 MCH 30.2 MCHC 31.9 L RDW 14.4 Plt Count 206 MPV 11.6 H Sodium 138 Potassium 4.0 Chloride 104 Carbon Dioxide 25 Anion Gap 9 BUN 28 H Creatinine 1.23 Estim Creat Clear Calc 56 Estimated GFR > 60 Glucose 147 H Calcium 8.2 L Total Bilirubin 0.4 AST 55 ALT 71 H Alkaline Phosphatase 51 Total Protein 6.2 L Albumin 3.5
[2025-04-03] MEDS: EMPAGLIFLOZIN 10 MG TABLET PO (12:49)
[2025-04-03] MEDS: METOPROLOL SUCCINATE EXT REL 25 MG TABCR PO (12:49)
[2025-04-03] MEDS: SPIRONOLACTONE 12.5 MG TABLET PO (14:00)
--- NOTE | 2025-04-03 17:00 | PC.NURSE ---
Saul, with [employer] [facility] Vest, at bedside educating patient.
[2025-04-03] MEDS: AZITHROMYCIN 250 MG TABLET 500 MG PO (20:44)
[2025-04-04] VITALS (9 sets, daily range): BP systolic 127; BP diastolic 63; PULSE 78–99; RESP 20–24; TEMP 36.3; O2SAT 97–99
[2025-04-04] MEDS: ALBUTEROL SULFATE NEB 2.5 MG/3 ML INH INHALATION ×2 (01:34→07:36)
--- NOTE | 2025-04-04 03:09 | PC.NURSE ---
On 04/04/25, the Graduate Nurse, Carly, provided care and completed [employer] documentation on this patient with this nurse available for questions/assistance. I have reviewed Carly's documentation and agree with the findings.
[2025-04-04 06:28] LABS: Hematocrit 45.6 % (42.0-52.0); Hemoglobin 14.3 g/dL (14.0-18.0); Mean Corpuscular HGB Conc 31.4 g/dl (32-36); Mean Corpuscular Hemoglobin 30.2 pg (26-34); Mean Corpuscular Volume 96.4 fl (80-100); Mean Platelet Volume 12.1 fl (7.4-10.4); Platelet Count Result 242 k/mm3 (150-375); Red Blood Count 4.73 M/mm3 (4.6-6.20); Red Cell Distribution Width 14.3 % (11.5-14.5); White Blood Count 17.9 K/mm3 (4.5-10.0)
[2025-04-04 06:54] LABS: Alanine Aminotransferase 79 U/L (6-50); Albumin Level 4.1 g/dL (3.5-5.1); Alkaline Phosphatase 60 U/L (38-126); Anion Gap 12 mmol/L (4-12); Aspartate Amino Transferase 58 U/L (17-59); Bilirubin,Total 0.6 mg/dL (0.2-1.3); Blood Urea Nitrogen 23 mg/dL (9-20); Calcium 9.2 mg/dL (8.4-10.2); Carbon Dioxide 24 mmol/L (22-30); Chloride 103 mmol/L (98-107); Estimated CRCL calculation 54 ml/min; Estimated Glomerular Filt Rate 58; Glucose 134 mg/dL (65-110); Potassium 4.5 mmol/L (3.4-5.0); Sodium 139 mmol/L (137-145); Total Protein 7.2 g/dL (6.3-8.2)
--- NOTE | 2025-04-04 08:41 | PM.PNCARD ---
Progress Note: A&P Assessment and Plan (1) Congestive heart failure: Code(s): I50.9 - Heart failure, unspecified Status: Acute Plan 54-year-old man with methamphetamine abuse and tobacco abuse presented with shortness of breath found to be in acute decompensated systolic heart failure Acute decompensated systolic heart failure -fitted for LifeVest -Shifted carvedilol to metoprolol succinate 25 mg p.o. daily given inability to had other guideline directed medical therapy due to blood pressure and patient understands consequences if he continues to use amphetamine based products while on metoprolol and agrees to continue to metoprolol for now -continue Entresto 24-26 mg p.o. b.i.d. -continue spironolactone 12.5 mg p.o. daily -continue Jardiance 10 mg p.o. daily NSVT -brief, self-limiting -On beta elisha -LifeVest Methamphetamine abuse -Reviewed the detrimental effects of illicit drug use cardiovascular health -patient agrees and expressed understanding and will stop using illicit drugs Tobacco abuse -Counseling performed - he is committed to quitting. OK for discharge today from a cardiac perspective. Will arrange follow up in our office. Subjective Date/time seen: 04/04/25 08:41 Interval history: Cardiology follow up visit Feels better today. No chest pain or shortness of breath. Has clear understanding that likely etiology of his heart failure is from methamphetamine use. He would understands the potential dangers effects of using amphetamine based products while on metoprolol. Date of service 04/04/2025: He feels well today and has no complaints. No chest pain, shortness of breath, swelling. Lifevest in place. Review of Systems Review of Systems: All systems reviewed & are unremarkable except as noted in HPI and below Cardiovascular: Cardiovascular: Reports as per HPI Respiratory: Respiratory: Reports as per HPI Exam Const: General: comfortable, no acute distress, alert and awake Orientation/consciousness: patient oriented x3 HENMT: Head: normal to inspection Mouth: Yes moist mucous membranes Eyes: General: appearance normal, both eyes and all related structures Pupils: Equal, round and reactive pupils present EOM: EOMs intact bilaterally Neck: Neck: normal visual inspection, supple and no JVD Carotids: normal carotid upstroke Resp: Effort & Inspection: normal respiratory effort Auscultation: clear to auscultation bilaterally Cardio: Rate: regular rate Rhythm: regular rhythm Heart sounds: S1 normal heart sound present, S2 normal heart sound present and no murmurs GI: Auscultation: normal bowel sounds Skin: General skin exam: normal color Neuro: General: patient oriented x3 Cranial nerves: Yes Equal, round and reactive pupils present Extrem: General: normal to inspection and no pedal edema Psych: Appearance: grossly normal Mental Status: mental status grossly normal Objective Data Vital Signs Vital Signs: Vital Signs - 24 hr 04/03/25 10:02 04/03/25 12:00 04/03/25 12:49 Temperature Pulse Rate 90 90 90 Respiratory Rate Blood Pressure Pulse Oximetry Oxygen Delivery 04/03/25 14:00 04/03/25 14:08 04/03/25 14:08 Temperature 35.9 C L Pulse Rate 83 100 Respiratory Rate 18 20 Blood Pressure 91/63 L Pulse Oximetry 100 96 Oxygen Delivery Room Air 04/03/25 14:15 04/03/25 16:00 04/03/25 19:53 Temperature Pulse Rate 83 81 89 Respiratory Rate 20 20 Blood Pressure Pulse Oximetry Oxygen Delivery 04/03/25 20:00 04/03/25 20:02 04/03/25 20:30 Temperature Pulse Rate 89 88 Respiratory Rate 20 Blood Pressure Pulse Oximetry Oxygen Delivery Room Air 04/03/25 21:00 04/04/25 00:00 04/04/25 01:34 Temperature 36.6 C Pulse Rate 89 99 79 Respiratory Rate 24 H 20 Blood Pressure 106/71 Pulse Oximetry 96 Oxygen Delivery 04/04/25 01:45 04/04/25 04:00 04/04/25 06:00 Temperature 36.3 C L Pulse Rate 82 91 91 Respiratory Rate 20 24 H Blood Pressure 127/63 Pulse Oximetry 99 Oxygen Delivery 04/04/25 07:36 04/04/25 07:36 04/04/25 07:44 Temperature Pulse Rate 85 78 Respiratory Rate 20 20 Blood Pressure Pulse Oximetry 97 Oxygen Delivery Room Air 04/04/25 08:00 Temperature Pulse Rate 78 Respiratory Rate Blood Pressure Pulse Oximetry Oxygen Delivery Intake/Output Intake/Output: Intake & Output 04/01/25 04/02/25 04/03/25 04/04/25 23:59 23:59 23:59 23:59 Intake Total 300 720 720 Balance 300 720 720 Meds/Results Medications: Active Medications Generic Name Dose Route Start Last Admin Trade Name Juan J PRN Reason Stop Dose Admin Albuterol 2.5 mg 04/02/25 02:00 04/04/25 07:36 Albuterol Sulfate Neb 2.5 Mg/3 Ml Inh INHALATION 2.5 mg Q6HRT JOSE Administration Amoxicillin/Clavulanate Potassium 1 tablet 04/02/25 21:00 04/03/25 20:44 Amoxicillin/Clavulanate K 875-125 Mg Tab PO 04/06/25 09:01 1 tablet Q12HR JOSE Administration Aspirin 81 mg 04/02/25 08:00 04/03/25 10:02 Aspirin 81 Mg Chewable Tablet PO 81 mg DAILY@0800 JOSE Administration Azithromycin 500 mg 04/02/25 21:00 04/03/25 20:44 Azithromycin 250 Mg Tablet PO 04/05/25 21:01 500 mg QHS JOSE Administration Empagliflozin 10 mg 04/03/25 12:45 04/03/25 12:49 Empagliflozin 10 Mg Tablet PO 10 mg DAILY JOSE Administration Enoxaparin Sodium 40 mg 04/02/25 09:00 04/03/25 10:02 Enoxaparin 40 Mg/0.4 Ml Syringe SUB-Q 40 mg DAILY JOSE Administration Metoprolol Succinate 25 mg 04/03/25 12:45 04/03/25 12:49 Metoprolol Succinate Ext Rel 25 Mg Tabcr PO 25 mg QAM JOSE Administration Prednisone 60 mg 04/03/25 08:00 04/03/25 10:02 Prednisone 20 Mg Tablet PO 04/08/25 07:59 60 mg DAILY@0800 JOSE Administration Sacubitril/Valsartan 1 tab 04/02/25 21:00 04/03/25 20:44 Sacubitril/Valsartan 24-26 Mg Tablet PO 1 tab Q12HR JOSE Administration Spironolactone 12.5 mg 04/03/25 12:45 04/03/25 14:00 Spironolactone 12.5 Mg Tablet PO 12.5 mg QAM JOSE Administration Radiology Results: ITS Impressions Chest X-Ray 04/01/25 18:15 IMPRESSION: Right middle lobe infiltrate. Upper Quadrant Ultrasound 04/02/25 09:45 IMPRESSION: 1. Indeterminate 1.6 cm hyperechoic nodules in the right hepatic lobe which in the absence of known liver disease or prior primary malignancy would be most likely to represent a hemangioma. Could consider multiphase pre and postcontrast MRI or CT for more definitive determination as clinically indicated. Labs Labs: Laboratory Results - last 24 hr 04/03/25 04/04/25 09:53 06:03 WBC 16.2 H 17.9 H RBC 4.30 L 4.73 Hgb 13.0 L 14.3 Hct 40.7 L 45.6 MCV 94.7 96.4 MCH 30.2 30.2 MCHC 31.9 L 31.4 L RDW 14.4 14.3 Plt Count 206 242 MPV 11.6 H 12.1 H Sodium 138 139 Potassium 4.0 4.5 Chloride 104 103 Carbon Dioxide 25 24 Anion Gap 9 12 BUN 28 H 23 H Creatinine 1.23 1.29 Estim Creat Clear Calc 56 54 Estimated GFR > 60 58 L Glucose 147 H 134 H Calcium 8.2 L 9.2 Total Bilirubin 0.4 0.6 AST 55 58 ALT 71 H 79 H Alkaline Phosphatase 51 60 Total Protein 6.2 L 7.2 Albumin 3.5 4.1
[2025-04-04] MEDS: SPIRONOLACTONE 12.5 MG TABLET PO (10:27)
[2025-04-04] MEDS: METOPROLOL SUCCINATE EXT REL 25 MG TABCR PO (10:27)
[2025-04-04] MEDS: predniSONE 20 MG TABLET 60 MG PO (10:27)
[2025-04-04] MEDS: ASPIRIN 81 MG CHEWABLE TABLET PO (10:28)
[2025-04-04] MEDS: AMOXICILLIN/CLAVULANATE K 875-125 MG TAB 1 TABLET PO (10:28)
[2025-04-04] MEDS: SACUBITRIL/VALSARTAN 24-26 MG TABLET 1 TAB PO (10:28)
[2025-04-04] MEDS: EMPAGLIFLOZIN 10 MG TABLET PO (10:29)
--- NOTE | 2025-04-04 11:27 | P.DS_ITS ---
DS: Admitting Diagnosis Discharge Date 04/04/2025 Admitting Diagnosis pneumonia cardiomyopathy elevated troponin methamphetamine use DS: Discharge Diagnosis Discharge Diagnosis (1) Community acquired pneumonia: Qualifiers: Laterality: right Lung location: middle lobe of lung Qualified Code(s): J18.9 - Pneumonia, unspecified organism Code(s): J18.9 - Pneumonia, unspecified organism Status: Acute (2) Cardiomyopathy: Code(s): I42.9 - Cardiomyopathy, unspecified Status: Acute (3) Elevated troponin: Code(s): R79.89 - Other specified abnormal findings of blood chemistry Status: Acute (4) Methamphetamine use: Code(s): F15.10 - Other stimulant abuse, uncomplicated Status: Acute DS: Summary Hospital Course Reason for hospitalization: pneumonia cardiomyopathy elevated troponin methamphetamine use Hospital Course: 54-year-old male smoker (1pack/day) with past medical historyof methamphetamine use who presented to the hospital with cough and shortness of breath for about 5 days. Did not meet sepsis criteria. CXR was obtained and showed right middle lobe infiltrate. Patient started on IV antibiotics, transitioned to oral antibiotics at time of discharge. On admission patient had an elevated troponin but levels remained flat and were not indicative of acute myocardial event. Possibly due to demand ischemia. Patient denied chest pain throughout admission. Prior to admission patient noted slight lower extremity edema which had already resolved. This prompted an echo be ordered which showed showed an EF 25-30%. This was a new diagnosis. Etiology unknown, but perhaps secondary to methamphetamine use. Cardiology consulted and patient was started on GDMT. A lifevest was ordered and patient was fitted prior to discharge. Cardiology plans for coronary angiogram as an outpatient to assess for underlying coronary artery disease. Patient to follow up with cardiology in the outpatient setting. Patient had no complaints at time of discharge denying chest pain, shortness a breath, palpitations, nausea/vomiting, abdominal pain, dizziness/lightheadedness, and weakness. Patient discharged home in a stable condition. He is to follow up with primary care provider in 1 week and Cardiology as scheduled. Status at Discharge Functional status at discharge: independent ambulation Time Spent with Patient Time attestation: Total time spent providing and/or coordinating discharge services: Time spent: Greater than 30 minutes Exam Narrative: AF HR 99 RR 20 SpO2 97 BP 127/63 General: male in no acute respiratory distress who is nontoxic appearing, sitting on side of bed. HEENT: Normocephalic. Atraumatic. Extraocular movement intact. Sclera clear and anicteric. No facial asymmetry. Chest: Lungs are clear to auscultation bilaterally. No wheezes or crackles. CV: Heart was regular rate and rhythm. S1/S2. No murmurs, gallops, or rubs. Abd: Abdomen was soft. Nontender. Nondistended. Positive bowel sounds. Ext: No clubbing, cyanosis, or edema. DP pulses bilaterally. Neuro: Patient is alert and oriented x4. Speech is clear. DS: Data Data Completed and Pending Completed studies during hospitalization: chest xr upper quadrant US Labs on day of discharge: Labs from last 24 hours 04/04/25 06:03 WBC 17.9 H RBC 4.73 Hgb 14.3 Hct 45.6 MCV 96.4 MCH 30.2 MCHC 31.4 L RDW 14.3 Plt Count 242 MPV 12.1 H Sodium 139 Potassium 4.5 Chloride 103 Carbon Dioxide 24 Anion Gap 12 BUN 23 H Creatinine 1.29 Estim Creat Clear Calc 54 Estimated GFR 58 L Glucose 134 H Calcium 9.2 Total Bilirubin 0.6 AST 58 ALT 79 H Alkaline Phosphatase 60 Total Protein 7.2 Albumin 4.1 Preliminary micro results at discharge 04/01/25 20:10 Blood Culture - Preliminary Blood 04/01/25 20:26 Blood Culture - Preliminary Blood Discharge Plan Discharge Attending physician on discharge: Trena Joseph Consulting providers: Sahara Hernandes; Alivia Dempsey Discharging Clinician: Alivia Dempsey Anticipated Discharge Date/Time: 04/04/25 11:19 Patient Disposition: Home Activity: as tolerated Diet: as tolerated and heart healthy Discharge Instructions: Discharge disposition: Patient admitted to the hospital for shortness of breath and fatigue Diagnosed with pneumonia Continue antibiotic course to completion even if feeling better augmentin, course to be completed on 04/06 azithromycin, course to be completed on 04/05 attached is information on these medications During admission diagnosed with decompensated systolic heart failure Evaluated by cardiology Continue medications as prescribed metoprolol, Entresto, spironolactone and Jardiance attached is information on these medications Wear the lifevest at all times, follow the instructions given by cardiology Follow up with cardiology Strongly encourage stopping illicit drug use as this can worsen your heart failure Monitor blood pressures Take caution while standing, rising, or moving Change positions slowly taking a break between each position change If you standing feel dizzy sit back down and take a break Encouraged to continue with yearly vaccinations Return to the emergency department if he developed sudden shortness of breath, chest pain, nausea, vomiting, upset stomach or intractable diarrhea Return to the emergency department if you develop fever greater than 101.5 Follow-up with the primary care physician within 1-2 weeks Thank you for choosing [facility] for your healthcare needs Patient Instructions: Antibiotic Form, Metoprolol (By mouth), Spironolactone (By mouth), Amoxicillin/Clavulanate Potassium (By mouth), Azithromycin (By mouth), Empagliflozin (By mouth), Sacubitril/Valsartan (By mouth), Heart Failure (DC), Wearable Cardioverter Defibrillator (DC) Patient Language: Slovak Stand Alone Forms: General Discharge Information Follow-up/Referrals: Raphael Holliday MD [Primary Care Provider] - 1 Week Sahara Hernandes APN-C [Advanced Practice Nurse] - Call for Appointment Discharge Medications: New metoprolol succinate [Toprol XL] 25 mg Tablet Extended Release 24 Hr 25 mg PO QAM Qty: 30 0RF Jardiance 10 mg Tablet 10 mg PO DAILY Qty: 30 0RF Entresto 24-26 mg Tablet 1 tab PO Q12HR Qty: 60 0RF spironolactone 25 mg tablet 12.5 mg PO DAILY Qty: 30 0RF azithromycin [Zithromax] 250 mg Tablet 500 mg PO QHS Qty: 2 0RF aspirin [Children's Aspirin] 81 mg Tablet,Chewable 81 mg PO DAILY@0800 Qty: 30 0RF amoxicillin-pot clavulanate 875-125 mg tablet 1 tablet PO Q12H Qty: 5 0RF Continued nicotine 14 mg/24 hr patch 24 hour 1 patch topical Q24H nicotine (polacrilex) 4 mg gum 4 mg PO Q6H PRN (Reason: nicotine cravings) Date of admission: 04/01/25 20:35 Primary Care Provider: Raphael Holliday Admitting Provider: Cris Robbins Attending physician on admission: Cris Robbins Condition: Stable Hospitalist MIPS Heart Failure (Exclusion) Patient has history of Heart Transplant or Left Ventricular Assistive Device?: No IF YES, STOP HERE Heart Failure (Qualifier) Patient has current or prior documentation of LVEF less than or equal to 40%, or mod/servere depressed LVSF?: Yes IF NO, STOP HERE If Yes, Heart Failure (Qualifier) Patient was prescribed or already taking an Angiotensin-Converting Enzyme (JALEESA) Inhibitor, or Antiotensin Receptor Guillermina (ARB): Yes Patient was prescribed or already taking bisoprolol, carvedilol, or sustained release metoprolol succinate: Yes
[2025-04-06 18:03] LABS: Mycoplasma IgM Antibody Titer. 92 U/mL
== END 2025-04-04 11:55 | disposition home or self-care (01) ==
LOC: ANHED 19:32 → ANH3MEDSUR 21:29
PROVIDERS: Physician Assistant; Student in an Organized Health Care Education/Training Program; Admitting Provider Internal Medicine; Emergency Provider Emergency Medicine; PCP Internal Medicine; Visit Provider Internal Medicine
DX: J18.9 Pneumonia, unspecified organism (principal); I50.23 Acute on chronic systolic (congestive) heart failure; I42.9 Cardiomyopathy, unspecified; I47.19 Other supraventricular tachycardia; F15.10 Other stimulant abuse, uncomplicated; F17.210 Nicotine dependence, cigarettes, uncomplicated; R74.01 Elevation of levels of liver transaminase levels; R79.89 Other specified abnormal findings of blood chemistry; F41.9 Anxiety disorder, unspecified; F32.A Depression, unspecified
CPT/HCPCS: 36415; 71046; 76705; 80053; 81001; 83735; 83880; 84484; 85025; 85027; 85610; 85730; 86738; 87040; 93005; 94640; 96365; 96367; 96372; 96375; 99285; A9270; C8929; G0378; G0379; J0456; J0696; J1650; J1938; J2919; J7512; Q9957